=== PATIENT | female | born 1960 | race Caucasian/White ===

== ENCOUNTER → 2017-08-09 08:37 | Outpatient (CLI) | payer MEDICAID, SELFPAY ==
[2017-08-09 10:00] LABS: ALB/GLOB Ratio 1.2 RATIO (0.9-2.4); AST(SGOT) 21 U/L (15-37); Alanine Aminotransfer ALT/SGPT 24 U/L (13-56); Albumin, Serum 3.8 g/dL (3.2-5.0); Alkaline Phosphatase 93 U/L (45-117); Anion Gap 6 (5-15); BUN 14 mg/dL (7-18); BUN/Creat Ratio 19.9 RATIO (10-20); Calcium,Total 8.8 mg/dL (8.5-10.1); Chloride 105 mmol/L (98-107); Cholesterol 228 mg/dL (200); EST Glomerular Filtration Rate 92 mL/min (>60); Est Glom Filt Rate - Afr Amer 111 mL/min (>60); Globulin 3.2 g/dL (2.2-4.2); Glucose 99 mg/dL (74-106); High Density Lipoprotein 55 mg/dL; Potassium 3.9 mmol/L (3.5-5.1); Sodium Level 142 mmol/L (136-145); Triglycerides 113 mg/dL; Very Low Density Lipoprotein 23 mg/dL (5-40)
== END ==
PROVIDERS: Family Provider Preventive Medicine Occupational Medicine; PCP Preventive Medicine Occupational Medicine; Visit Provider Preventive Medicine Occupational Medicine
DX: Z00.00 Encounter for general adult medical examination without abnormal findings (principal)
CPT/HCPCS: 36415; 80053; 80061

== ENCOUNTER 2021-03-10 17:29 | Emergency (ER) | payer MEDICAID, SELFPAY ==
[2021-03-10 17:30] VITALS: BP 105/78; PULSE 102; RESP 22; TEMP 37.6; O2SAT 97; BMI 27.4
--- NOTE | 2021-03-10 18:03 | RAD_ITS ---
STUDY: X-RAY CHEST REASON FOR EXAM: Female, 60 years old. cough TECHNIQUE: Single AP portable view of the chest. COMPARISON: None. FINDINGS: The lungs are clear and expanded. There is no demonstrated pleural abnormality. Normal size heart. Normal mediastinum and enmanuel. Normal visualized pulmonary arteries. There is atherosclerotic calcification of the aortic arch with tortuosity. There are diffuse degenerative changes of the visualized thoracic spine. Normal visualized ribs, clavicles, and shoulders. There is no demonstrated abnormality of the visualized soft tissue structures of the upper abdomen. RAD/Chest 1 View (Portable) IMPRESSION: Degenerative changes, as described above. No demonstrated acute cardiopulmonary process. Electronically Signed: Yan Torres MD at 19:08 EDT , Service support ,
[2021-03-10 18:34] VITALS: BP 105/78; PULSE 102; RESP 22; TEMP 37.6; O2SAT 97
[2021-03-10 18:51] VITALS: O2SAT 95
--- NOTE | 2021-03-10 18:54 | EDS_ITS ---
HPI HPI - URI History of Present Illness Chief Complaint: Shortness of Breath Narrative Narrative: 60-year-old female presenting with chills, fever, cough for 6 days. She has not loss or change in taste or smell. Patient was not vaccinated for COVID-19 because she states it is her choice. She thinks she developed a fever today and states her temp was as high as 99.6. Patient does not have any chest pain. Patient does describe some nausea and diarrhea as well. ROS ROS ED Constitutional Constitutional ED: Reports chills and fever(s) Eyes Eyes: Denies blurry vision or diplopia ENT ENT ED: Reports rhinorrhea; Denies sore throat Cardiovascular Cardiovascular: Denies chest pain or palpitations Respiratory/Chest Respiratory/Chest: Reports cough and dyspnea Gastrointestinal Gastrointestinal: Reports nausea and vomiting; Denies abdominal pain Genitourinary Genitourinary ED: Denies dysuria or hematuria Musculoskeletal Musculoskeletal: Reports myalgias; Denies arthralgias Integumentary Denies Abrasions or rash Neurologic Neurologic: Denies headache(s) or weakness PFSH PFSH Medical History no medical history Home Medications ondansetron 4 mg PO Q8H PRN PRN #10 tab 11/03/13 [Rx Last Taken Unknown] ondansetron 4 mg PO Q8H PRN PRN #10 tab 03/10/21 [Rx Last Taken Unknown] Allergy/AdvReac Type Severity Reaction Status Date / Time No Known Allergies Allergy Verified 03/10/21 17:29 Surgical History no surgical history Social History Smoking Status: Never smoker EXAM Physical Exam Const Vital Signs: 03/10/21 17:30 03/10/21 18:34 03/10/21 18:51 Temperature 99.6 F H 99.6 F H Temperature Source Temporal Temporal Pulse Rate 102 H 102 H Respiratory Rate 22 H 22 H Respiratory Effort Short of Breath Respiratory Depth Normal Respiratory Pattern Tachypnea Blood Pressure 105/78 105/78 Blood Pressure Mean 87 87 Pulse Ox 97 97 Oxygen Delivery Method Room Air Room Air Room Air 03/10/21 20:40 Temperature Temperature Source Pulse Rate Respiratory Rate Respiratory Effort Respiratory Depth Respiratory Pattern Blood Pressure Blood Pressure Mean Pulse Ox 94 Oxygen Delivery Method Positive well nourished General Appearance ED: NAD; Negative for pallor HEENT normocephalic and atraumatic Eyes PERRL and EOMs intact bilaterally Neck supple and no meningeal signs Resp normal respiratory effort and clear to auscultation bilaterally Cardio Rate: tachycardic Rhythm: regular rhythm GI non-tender Palpation: soft Neuro oriented x3 and CN's II-XII intact bilaterally Sensorium / Orientation: alert Psych mental status grossly normal Skin General Skin Exam: Negative for jaundice or pallor Rashes: no rashes MDM MDM MDM Narrative Medical decision making narrative: Patient's CBC and BMP are normal. LFTs are normal. Procalcitonin negative. Chest x-ray my interpretation shows no acute cardiopulmonary process. The radiologist does agree.. Patient is not having any chest pain. She is not requiring oxygen. I feel she is stable to be discharged home since her Covid testing is negative. Impression: 1. Viral syndrome Lab Data Attestation: I reviewed the patient's lab results. Labs: Laboratory Results - last 24 hr 03/10/21 03/10/21 03/10/21 18:35 18:35 18:35 WBC 6.0 RBC 5.11 Hgb 14.9 Hct 44.6 MCV 87.3 MCH 29.2 MCHC 33.4 RDW Std Deviation 42.5 RDW Coeff of Miki 13.2 Plt Count 174 MPV 10.7 Immature Gran % (Auto) 0.300 Neut % (Auto) 81.5 H Lymph % (Auto) 12.4 L [place] % (Auto) 5.6 Eos % (Auto) 0.0 Baso % (Auto) 0.2 Absolute Neuts (auto) 4.9 Absolute Lymphs (auto) 0.75 L Nucleated RBC % 0 Sodium 137 Potassium 3.5 Chloride 102 Carbon Dioxide 27.0 Anion Gap 8 BUN 11 Creatinine 0.72 Estim Creat Clear Calc 81.81 Est GFR (MDRD) Af Amer 106 Est GFR (MDRD) Non-Af 87 BUN/Creatinine Ratio 15.2 Glucose 127 H Calcium 9.6 Total Bilirubin 0.60 AST 33 ALT 38 Alkaline Phosphatase 104 Total Protein 7.5 Albumin 3.7 Globulin 3.8 Albumin/Globulin Ratio 1.0 Procalcitonin 0.04 Radiography Diagnostic Testing: Radiology Impression Chest X-Ray 03/10/21 18:03 IMPRESSION: Degenerative changes, as described above. No demonstrated acute cardiopulmonary process. Electronically Signed: Yan Torres MD at 19:08 EDT , Service support , Discharge Plan Triage Chief Complaint: Shortness of Breath ED Provider: Saeid Bautista Dx/Rx/DC Orders Instructions: ED Viral Syndrome (Adult) Prescriptions: New ondansetron 4 mg tablet,disintegrating 4 mg PO Q8H PRN PRN (Reason: Nausea) Qty: 10 RF: 0 No Action ondansetron 4 MG tablet 4 mg PO Q8H PRN PRN (Reason: Nausea) Qty: 10 RF: 0 Primary Care Provider: Memo Burnett Referrals: Memo Burnett DO [Primary Care Provider] - Disposition Disposition: Home, Self Care Discharge Date/Time: 03/10/21 20:47
[2021-03-10 18:56] LABS: Absolute Lymphocyte Count 0.75 X10^3/uL (0.83-4.51); Absolute Neutrophil Count 4.9 X10^3/uL (2.0-7.7); Basophil# 0.01 X10^3/uL; Basophil% 0.2 % (0-1); Hematocrit 44.6 % (37-47); Hemoglobin 14.9 g/dL (12.0-15.0); Lymphocyte # 0.75 X10^3/ul (0.83-4.51); Lymphocyte % 12.4 % (19-41); Mean Corp Hgb Conc 33.4 g/dL (32-36); Mean Corpuscular Hgb 29.2 pg (27.0-32.0); Mean Corpuscular Volume 87.3 fL (81-99); Mean Platelet Vol. 10.7 fl (6.2-12.0); Monocyte# 0.34 X10^3/uL; Monocyte% 5.6 % (0-10); NRBC Flagged by Analyzer 0 % (0-5); Neutrophil # 4.91 X10^3/uL (2.7-7.7); Neutrophil % 81.5 % (47-70); Platelet Count 174 K/mm3 (150-450); RBC Distribution Width CV 13.2 % (11.6-14.6); RBC Distribution Width SD 42.5 fl (35.1-43.9); Red Blood Count 5.11 M/mm3 (4.2-5.4)
[2021-03-10 19:15] LABS: AST(SGOT) 33 U/L (15-37); Alanine Aminotransfer ALT/SGPT 38 U/L (13-56); Albumin, Serum 3.7 g/dL (3.2-5.0); Alkaline Phosphatase 104 U/L (45-117); Anion Gap 8 (5-15); BUN 11 mg/dL (7-18); BUN/Creat Ratio 15.2 RATIO (10-20); Calcium,Total 9.6 mg/dL (8.5-10.1); Chloride 102 mmol/L (98-107); Creatinine, Serum 0.72 mg/dL (0.55-1.02); EST Glomerular Filtration Rate 87 mL/min (>60); Est Glom Filt Rate - Afr Amer 106 mL/min (>60); Estimated Creatinine Clearance 81.81 ml/min; Globulin 3.8 g/dL (2.2-4.2); Glucose 127 mg/dL (74-106); Potassium 3.5 mmol/L (3.5-5.1); Protein, Total 7.5 g/dL (6.4-8.2); Sodium Level 137 mmol/L (136-145)
[2021-03-10 19:31] LABS: Procalcitonin 0.04 ng/mL (0.00-0.09)
[2021-03-10] MEDS: Ondansetron 4 MG/2 ML Vial IV (19:37)
[2021-03-10] MEDS: Acetaminophen 500 MG Tablet 1000 MG PO (19:37)
[2021-03-10 20:40] VITALS: O2SAT 94
== END 2021-03-10 20:47 | disposition home or self-care (01) ==
PROVIDERS: Emergency Provider Student in an Organized Health Care Education/Training Program; PCP Preventive Medicine Occupational Medicine
DX: B34.9 Viral infection, unspecified (principal); R50.9 Fever, unspecified; R05 Cough; R11.0 Nausea; R19.7 Diarrhea, unspecified
CPT/HCPCS: 71045; 80053; 84145; 85025; 87426; 96374; 99283; A4216; J2405

== ENCOUNTER → 2024-11-28 | Outpatient (CLI) | payer MEDICAID, SELFPAY ==
--- NOTE | 2024-11-28 08:07 | RAD_ITS ---
PROCEDURE: ESOPHAGUS DUAL CONTRAST 11/28/2024 REASON FOR EXAM: DYAPHAGIA/GERD W/O ESOPHAGITIS TECHNIQUE: The patient ingested barium. Multiple images were obtained. 34 seconds of fluoroscopy. 2.95 mGy. COMPARISON: None FINDINGS: There is a small sliding hiatal hernia without gastroesophageal reflux. Web- like stenosis is seen at the gastroesophageal junction. The patient ingested a 12 mm tablet the barium. The tablet is trapped at the gastroesophageal junction. RAD/Esophagus Dual Contrast IMPRESSION: Small sliding hiatal hernia without gastroesophageal reflux. Web-like stenosis at the gastroesophageal junction. There is trapping of the 12 mm tablet the barium at that site. Reading Location: [facility]
== END | disposition home or self-care (01) ==
LOC: RAD 08:03
PROVIDERS: Referring Provider Family Medicine; Visit Provider Family Medicine
DX: R13.10 Dysphagia, unspecified (principal); K21.9 Gastro-esophageal reflux disease without esophagitis
CPT/HCPCS: 74221

== ENCOUNTER 2024-12-03 05:12 | Day surgery (SDC) | payer MEDICAID, SELFPAY ==
[2024-12-03] VITALS (8 sets, daily range): BP systolic 105–134; BP diastolic 71–109; PULSE 64–76; RESP 14–18; TEMP 36.1–36.9; O2SAT 92–96
--- OUTSIDE RECORDS SUMMARY | 2024-12-03 05:15 | XMS RPT_ITS | CCD ---
Author Organization [facility] Care Team Providers Care Spout Liner Helper Name Role Phone CAN BURNETT Attending Unavailable CAN BURNETT Primary Care Unavailable CAN BURNETT DO Primary Care Physician Can Burnett DO Primary Care Provider [phone] CAN BURNETT Primary Care Unavailable ROWAN CEDENO Attending Unavailable CAN BURNETT Primary Care Unavailable CAN BURNETT Primary Care Unavailable RADHA BLANCO DO Attending Unavailable RADHA BLANCO DO Primary Care Unavailable RADHA BLANCO DO Primary Care Unavailable RADHA BLANCO DO Attending Unavailable Dr. Can Burnett DO Primary Care Provider Dr. Can Burnett DO Referring Provider Jennifer Linton Attending Provider [phone] Dr. Radha Blanco DO Attending Provider Dr. Radha Blanco DO Referring Provider Jennifer Linton Primary Care Provider Jennifer Chawla Attending Unavailable Can Burnett Primary Care Unavailable Can Burnett Referring Unavailable Jennifer Chawla Primary Care Unavailable Radha Blanco Attending Unavailable Radha Blanco Referring Unavailable Can Burnett Primary Care Unavailable Can Burnett Referring Unavailable Francesco Morris Attending Unavailable Medications Current Medications Medication Drug Class(es) Dates Sig (Normalized) Sig (Original) ascorbic acid 500 mg oral tablet (1 source) Vitamin C Start: 11-30-2024 take 1 tablet by mouth once daily Ascorbic Acid (Vitamin C) (C-500) 500 mg tablet Active 500 mg PO DAILY November 30, 2024 12:00am calcium carbonate 1500 mg / cholecalciferol 200 unt oral tablet (1 source) Vitamin D Start: 11-30-2024 Calcium Carbonate-Vitamin D3 (Calcium 600 + D(3)) 600 mg-5 mcg (200 unit) tablet Active 1 {tbl} PO DAILY November 30, 2024 12:00am cholecalciferol 0.025 mg oral capsule (1 source) Vitamin D Start: 11-30-2024 take 1 capsule by mouth once daily Cholecalciferol (Vitamin D3) (Vitamin D3) 25 mcg (1,000 unit) capsule Active 25 ug PO DAILY November 30, 2024 12:00am famotidine 40 mg oral tablet (3 sources) Histamine-2 Receptor Antagonist Start: 09-24-2024 take 1 tablet by mouth at bedtime Famotidine 40 mg tablet Active 40 mg PO AT BEDTIME September 24, 2024 12:00am Start: 09-24-2024 End: 09-24-2024 take 1 tablet by mouth at bedtime Famotidine (Pepcid Ac) 10 mg tablet Discontinued 10 mg PO AT BEDTIME September 24, 2024 12:00am September 24, 2024 3:26pm Start: 06-18-2022 famotidine 40 mg oral tablet Dose : 40 mg = 1 tab(s), Oral, Daily, # 90 tab(s), 3 Refill(s), Pharmacy: [facility]/pharmacy #[id number], GERD without esophagitis, 168.5, cm, 08/25/20 8:27:00 EST, Height, kg, 08/25/20 8:27:00 EST, Dosing Weight Start Date: 06/18/22 Status: Ordered Magnesium (1 source) Start: 11-30-2024 take 1 tablet by mouth once daily Magnesium 250 mg tablet Active 250 mg PO DAILY November 30, 2024 12:00am Multivitamin (Daily Multi-Vitamin) tablet (1 source) Start: 11-30-2024 Multivitamin (Daily Multi-Vitamin) tablet Active 1 {tbl} PO DAILY November 30, 2024 12:00am Multivitamin preparation (1 source) Start: 05-19-2020 take 1 tablet by mouth once daily Multivitamin Dose = 1 tab(s), Oral, Daily, 0 Refill(s) Start Date: 05/19/20 Status: Ordered Homestead 8-Aus-Kcy-Fish Oil (Fish Oil) 1,200 (144-216) mg capsule (1 source) Start: 11-30-2024 Homestead 2-Kvt-Gkt-Fish Oil (Fish Oil) 1,200 (144-216) mg capsule Active 1 NMA PO DAILY November 30, 2024 12:00am pantoprazole 40 mg delayed release oral tablet (1 source) Proton Pump Inhibitor Start: 09-24-2024 take 1 tablet by mouth twice daily 30 minutes before breakfast Pantoprazole 40 mg tablet,delayed release (DR/EC) Active 40 mg PO TWICE A DAY September 24, 2024 12:00am Please take 30 minutes before breakfast and dinner. vitamin b12 0.05 mg oral tablet (1 source) Vitamin B12 Start: 11-30-2024 take 1 tablet by mouth once daily Cyanocobalamin (Vitamin B-12) (Vitamin B-12) 50 mcg tablet Active 50 ug PO DAILY November 30, 2024 12:00am Vitamin C 500 mg oral tablet (1 source) Start: 07-05-2022 Vitamin C 500 mg oral tablet Dose : 500 mg = 1 tab(s), Oral, qDay, # 30 tab(s), 0 Refill(s) Start Date: 07/05/22 Status: Ordered Completed/Discontinued Medications Medication Drug Class(es) Dates Sig (Normalized) Sig (Original) estradiol 0.1 mg/ml vaginal cream (3 sources) Estrogen Start: 07-21-2020 estradiol (ESTRACE) 0.01 % (0.1 mg/gram) vaginal cream Use 0.5 g vaginally once daily. Use daily for 2 weeks then 1-3 times a week as needed 42.5 g 1 07/21/2020 Active Comment on above: Use 0.5 g vaginally once daily. Use daily for 2 weeks then 1-3 times a week as needed ondansetron 4 mg disintegrating oral tablet (2 sources) Serotonin-3 Receptor Antagonist Start: 11-03-2013 End: 09-24-2024 take 1 tablet by mouth every eight hours as needed for nausea Ondansetron 4 mg tablet,disintegrat ing Discontinued 4 mg PO EVERY 8 HOURS NEEDED as needed for Nausea March 10, 2021 12:00am September 24, 2024 3:00pm Problems Active Problems Problem Classification Problem Date Documented Da te Episodic/Chronic Diseases of white blood cells (2 sources) Leukopenia; Translations: [Decreased white blood cell count, unspecified] Chronic Esophageal disorders (3 sources) Gastroesophageal reflux disease without esophagitis; Translations: [Gastroesophageal reflux disease] Onset: 5 05-19-2020 Chronic Immunizations and screening for infectious disease (1 source) Encounter for screening for other viral diseases; Translations: [Encounter for screening for other viral diseases] Onset: 5 Episodic Nutritional deficiencies (1 source) Vitamin D deficiency, unspecified; Translations: [Vitamin D deficiency, unspecified] Onset: 5 Chronic Other bone disease and musculoskeletal deformities (1 source) Disorder of bone 07-05-2022 Episodic Other connective tissue disease (1 source) Ganglion cyst of right foot 05-19-2020 Episodic Other gastrointestinal disorders (2 sources) Dysphagia; Translations: [Dysphagia, unspecified] 09-24-2024 Episodic Other gastrointestinal disorders (1 source) Dysphagia, unspecified; Translations: [Dysphagia, unspecified] Onset: Episodic Other screening for suspected conditions (not mental disorders or infectious disease) (4 sources) Encounter for screening for cardiovascular disorders; Translations: [Encounter for screening for diseases of the blood and blood-forming organs and certain disorders involving the immune mechanism] Onset: 5 Episodic Other upper respiratory disease (1 source) Allergic rhinitis 07-05-2022 Chronic Residual codes; unclassified (1 source) Disturbance in sleep behavior 05-19-2020 Episodic Spondylosis; intervertebral disc disorders; other back problems (3 sources) Cervical spondylosis; Translations: [Spondylosis without myelopathy or radiculopathy, cervical region] Onset: 4 09-10-2013 Chronic Unclassified (2 sources) Patient encounter status 07-05-2022 Past or Other Problems Problem Classification Problem Date Documented Da te Episodic/Chronic Spondylosis; intervertebral disc disorders; other back problems (3 sources) Chronic neck pain; Translations: [Cervicalgia] Onset: 09-10-2013 09-10-2013 Episodic Results Test Name Value Interpretation Reference Range Facility Esophagus Dual Contraston Esophagus Dual Contrast [facility] [address] [place] [address] [id number] Esophagus Dual Contrast MR#: [id number] Acct: [id number] Name: YAS SMITH Rep #: [id number] : 1960 F 64 From: Leeroy chung MD PCP: GIANNI Dumont Status: REG CLI Study: Esophagus Dual Contrast Date of Exam: 11/28/24 Exam# [id number] Ordering Dr: Radha Blanco DO PROCEDURE: ESOPHAGUS DUAL CONTRAST 11/28/2024 REASON FOR EXAM: DYAPHAGIA/GERD W/O ESOPHAGITIS TECHNIQUE: The patient ingested barium. Multiple images were obtained. 34 seconds of fluoroscopy. 2.95 mGy. COMPARISON: None FINDINGS: There is a small sliding hiatal hernia without gastroesophageal reflux. Web-like stenosis is seen at the gastroesophageal junction. The patient ingested a 12 mm tablet the barium. The tablet is trapped at the gastroesophageal junction. RAD/Esophagus Dual Contrast IMPRESSION: Small sliding hiatal hernia without gastroesophageal reflux. Web-like stenosis at the gastroesophageal junction. There is trapping of the 12 mm tablet the barium at that site. Reading Location: [place] [address] CC: GIANNI Chawla; Dr. Radha Blanco DO Earthmoving Labourer: Signed Normal [facility] Gastroenterology Visit Repor ton 09-24-2024 Gastroenterology Visit Report [facility] [address] [place] [address] OFFICE VISIT Date of Service: 09/24/24 MR#: [id number] Acct: [id number] Name: YAS SMITH Rep #: [id number] : 1960 Provider: GIANNI driscoll Age/Sex: 64/F [place] [facility] Status: Signed Intake Vital Signs 03/10/21 17:30 Height 5 ft 7 in Intake Visit Reasons: Gastroesophageal reflux disease (GERD) Allergies No Known Allergies Allergy (Verified 09/24/24 14:59) PFSH Social History Smoking Status: Never smoker HPI HPI Details: YAS SMITH, is a 64 F who presents to the office today for establishment with [facility] for complaints of difficulty swallowing. 3 Labs: HCV nonreactive, chol 273, trig 81, HDL 71, LDL 186, CBC/CMP WNL. She reports that while eating, she will randomly get the feeling that her air is cut off but she can breathe just fine. She does not consume large bites of food and the food type is not consistently the same with each episode. When the blockages occur, she will note increased salivation and nasal drainage, she will then burp and it feels as if the food bolus will then travel down. She reports frequent sour taste in her mouth, she does snore very loudly, and notes increased belching. She difficulty chewing and moving food bolus to back of mouth. She does have frequent throat clearing when not eating. She denies nausea, vomiting, abdominal bloating, pain, constipation, diarrhea, hematochezia, and melena. She reports daily BMs without straining and with complete evacuation. She states that she is already scheduled for a barium tablet swallow test at [facility] on 10.11.24. She has been taking OTC Pepcid every night but has not noticed any decrease in occurrences of difficulty swallowing. ROS Const Constitutional: No chills, fatigue, fever(s) or weight change Eyes Eyes: No blurry vision or change in vision ENT ENT: Positive for difficulty swallowing; No abnormal hearing Resp Respiratory: Positive for cough Cardio Cardiology: No chest pain at rest, chest pain with exertion or leg pain with exertion Gastro GI: Positive for difficulty swallowing; No abdominal pain, belching, bloating, change in bowel habits, change in stool character, coffee ground emesis, constipation, cramping, diarrhea, heartburn, feeling full early, excessive flatus, incontinent of stools, Vomiting blood/hematemesis, Blood in stool, loose stools, Black,tarry stools, nausea/dyspepsia, pain with swallowing, vomiting or other Genitourinary-Female: No difficulty urinating Musc Musculoskeletal: No abnormal gait, joint pain or leg pain with exertion Skin Skin: No yellowing of the eye or itchy eyes Neuro Neurology: No abnormal gait or abnormal hearing Psych Psychiatric: No anxiety and No depression Endo Endocrine: No cold intolerance, fatigue, heat intolerance or weight change Aller/Imm Allergy/Immunologic: No food intolerance or itchy eyes Nirmal/Lymp Hematologic/Lymphatic: No easy bleeding or easy bruising Exam Const General: cooperative, healthy appearing, comfortable and no acute distress Nutritional Appearance: obese Orientation: alert and oriented x3 HENMT Head: normal to inspection Ears: hearing grossly normal bilaterally Nose: external nose normal Face and sinus: normal facial exam and face symmetric Eyes General: appearance normal, both eyes and all related structures Sclera: sclerae normal Neck Neck: full ROM Chest Chest palpation inspection: normal inspection of the chest Resp Effort Inspection: normal respiratory effort, able to speak in complete sentences and symmetric chest movement GI Inspection: normal to inspection and obesity Auscultation: normal bowel sounds Percussion: normal to percussion Palpation: soft and no hepatosplenomegaly Skin General: no rashes or lesions noted Neuro General: patient alert, patient oriented x3 and moves all extremities Cognition: normal cognition Speech: speech normal Gait: normal gait Extrem General: full ROM Psych Appearance: grossly normal Mental Status: mental status grossly normal Mood: congruent mood Affect: normal affect Speech and Movement: speech and movement normal Attitude: cooperative Thought Process: normal Judgment: judgment good Assessment and Plan Assessment and Plan (1) Gastroesophageal reflux disease: Qualifiers: Esophagitis presence: esophagitis presence not specified Qualified Code(s): K21.9 - Gastro- esophageal reflux disease without esophagitis (2) Dysphagia: Status: Acute Qualifiers: Dysphagia type: unspecified Qualified Code(s): R13.10 - Dysphagia, unspecified Medications: New pantoprazole Please take 30 minutes before breakfast and dinner. 40 mg PO BID 60 tabs 3RF (more content not included)... Normal [facility] .Auto Diffon 09-12-2024 Basophil, Absolute 0.0 10 3/mcL Normal 0.0-0.2 [facility] Comment on above: Performed By: #### C MP, LIPID, ANEU, ADIFF, VIDH, CBC, GFR, TSH #### [address] [address] #### HCV1 #### [facility] [address] [place] [address] Basophils/100 WBC (Bld) 0.8 % Normal 0.0-2.5 [facility] Comment on above: Performed By: #### C MP, LIPID, ANEU, ADIFF, VIDH, CBC, GFR, TSH #### [address] [address] #### HCV1 #### [address] [address] Eosinophil, Absolute 0.0 10 3/mcL Normal 0.0-0.7 [facility] Comment on above: Performed By: #### C MP, LIPID, ANEU, ADIFF, VIDH, CBC, GFR, TSH #### [place] [address] #### HCV1 #### [address] [address] Eosinophils/100 WBC (Bld) 0.7 % Normal 0.0-7.0 [facility] Comment on above: Performed By: #### C MP, LIPID, ANEU, ADIFF, VIDH, CBC, GFR, TSH #### [place] [address] #### HCV1 #### [address] [address] Lymphocyte, Absolute 1.5 10 3/mcL Normal 0.9-4.3 [facility] Comment on above: Performed By: #### C MP, LIPID, ANEU, ADIFF, VIDH, CBC, GFR, TSH #### [place] [address] #### HCV1 #### [address] [address] Lymphocytes/100 WBC (Bld) 29.8 % Normal 20.0-40.0 [facility] Comment on above: Performed By: #### C MP, LIPID, ANEU, ADIFF, VIDH, CBC, GFR, TSH #### [place] [address] #### HCV1 #### [address] [address] Monocyte, Absolute 0.3 10 3/mcL Normal 0.1-1.4 [facility] Comment on above: Performed By: #### C MP, LIPID, ANEU, ADIFF, VIDH, CBC, GFR, TSH #### [address] [address] #### HCV1 #### [address] [address] Monocytes/100 WBC (Bld) 6.2 % Normal 2.0-13.0 [facility] Comment on above: Performed By: #### C MP, LIPID, ANEU, ADIFF, VIDH, CBC, GFR, TSH #### [address] [address] #### HCV1 #### [address] [address] Neutrophils/100 WBC (Bld) 62.5 % Normal 50.0-75.0 [facility] Comment on above: Performed By: #### C MP, LIPID, ANEU, ADIFF, VIDH, CBC, GFR, TSH #### [address] [address] #### HCV1 #### [address] [address] .GFRon 09-12-2024 Estimated Glomerular Filtration Rate 80 ml/min/1.73sqm Normal [facility] Comment on above: Result Comment: Stages of Chronic Kidney Disease (CKD) Stage Description eGFR(ml/min/1.73 sq.m.) CKD 1 Normal kidney function or >=90 normal kindney function with possible kidney damage (ex. Proteinuria) CKD 2 Kidney damage with mild loss 60-89 of kidney function CKD 3a Mild to moderate loss of kidney 45-59 function CKD 3b Moderate to severe loss of 30-44 of kindey function CKD 4 Severe loss of kidney function 15-29 CKD 5 Kidney failure <15 Note: (go live 2024) the eGFR calculation was updated to the 2020 CKD-EPI creatinine equation without a race factor to calculate the eGFR results. Performed By: #### C MP, LIPID, ANEU, ADIFF, VIDH, CBC, GFR, TSH #### [address] [address] #### HCV1 #### [address] [address] .NEUABSon 09-12-2024 Neutrophil, Absolute 3.1 10 3/mcL Normal 2.3-8.1 [facility] Comment on above: Performed By: #### C MP, LIPID, ANEU, ADIFF, VIDH, CBC, GFR, TSH #### [address] [address] #### HCV1 #### [address] [address] CBCon 09-12-2024 Erythrocyte distribution width (RBC) [Ratio] 14.4 % Normal 11.5-15.5 [facility] Comment on above: Performed By: #### C MP, LIPID, ANEU, ADIFF, VIDH, CBC, GFR, TSH #### [place] [id number] #### HCV1 #### [address] [address] Hematocrit (Bld) [Volume fraction] 44.3 % Normal 34.0-46.0 [facility] Comment on above: Performed By: #### C MP, LIPID, ANEU, ADIFF, VIDH, CBC, GFR, TSH #### [address] [address] #### HCV1 #### [address] [address] Hgb 14.9 G/dL Normal 12.0-16.0 [facility] Comment on above: Performed By: #### C MP, LIPID, ANEU, ADIFF, VIDH, CBC, GFR, TSH #### [place] [address] #### HCV1 #### [address] [address] MCH (RBC) [Entitic mass] 29.0 pg Normal 27.0-33.0 [facility] Comment on above: Performed By: #### C MP, LIPID, ANEU, ADIFF, VIDH, CBC, GFR, TSH #### [address] [address] #### HCV1 #### [address] [address] MCHC 33.7 G/dL Normal 32.0-36.0 [facility] Comment on above: Performed By: #### C MP, LIPID, ANEU, ADIFF, VIDH, CBC, GFR, TSH #### [address] [address] #### HCV1 #### [place] [address] MCV (RBC) [Entitic vol] 86.0 fL Normal 80.0-99.0 [facility] Comment on above: Performed By: #### C MP, LIPID, ANEU, ADIFF, VIDH, CBC, GFR, TSH #### [place] [address] #### HCV1 #### [place] [address] Platelet 233 10 3/mcL Normal 150-450 [facility] Comment on above: Performed By: #### C MP, LIPID, ANEU, ADIFF, VIDH, CBC, GFR, TSH #### [place] [address] #### HCV1 #### [place] [address] Platelet mean volume (Bld) [Entitic vol] 8.8 fL Normal 6.6-10.5 [facility] Comment on above: Performed By: #### C MP, LIPID, ANEU, ADIFF, VIDH, CBC, GFR, TSH #### [place] [address] #### HCV1 #### [place] [address] RBC 5.15 10 6/mcL Normal 4.10-5.30 [facility] Comment on above: Performed By: #### C MP, LIPID, ANEU, ADIFF, VIDH, CBC, GFR, TSH #### [place] [address] #### HCV1 #### [place] [address] WBC 5.0 10 3/mcL Normal 4.5-10.8 [facility] Comment on above: Performed By: #### C MP, LIPID, ANEU, ADIFF, VIDH, CBC, GFR, TSH #### [address] [address] #### HCV1 #### [address] [address] CMPon 09-12-2024 Albumin Level 4.2 G/dL Normal 3.4-4.8 [facility] Comment on above: Performed By: #### C MP, LIPID, ANEU, ADIFF, VIDH, CBC, GFR, TSH #### [address] [address] #### HCV1 #### [address] [address] Albumin/Globulin [Mass ratio] 1.2 {ratio} Normal 1.1-2.5 [facility] Comment on above: Performed By: #### C MP, LIPID, ANEU, ADIFF, VIDH, CBC, GFR, TSH #### [address] [address] #### HCV1 #### [address] [address] ALP [Catalytic activity/Vol] 112 U/L Normal 40-135 [facility] Comment on above: Performed By: #### C MP, LIPID, ANEU, ADIFF, VIDH, CBC, GFR, TSH #### [address] [address] #### HCV1 #### [address] [address] ALT [Catalytic activity/Vol] 29 U/L Normal 14-59 [facility] Comment on above: Performed By: #### C MP, LIPID, ANEU, ADIFF, VIDH, CBC, GFR, TSH #### [address] [address] #### HCV1 #### [address] [address] AST [Catalytic activity/Vol] 20 U/L Normal 10-40 [facility] Comment on above: Performed By: #### C MP, LIPID, ANEU, ADIFF, VIDH, CBC, GFR, TSH #### [address] [address] #### HCV1 #### [address] [address] Bili Total 0.6 mg/dL Normal 0.2-1.0 [facility] Comment on above: Result Comment: Use of this assay is not recommended for patients undergoing treatment with eltrombopag due to the potential for falsely elevated results. Performed By: #### C MP, LIPID, ANEU, ADIFF, VIDH, CBC, GFR, TSH #### [place] [address] #### HCV1 #### [place] [address] BUN/Creatinine Ratio 17 ratio Normal 7-27 [facility] Comment on above: Performed By: #### C MP, LIPID, ANEU, ADIFF, VIDH, CBC, GFR, TSH #### [place] [address] #### HCV1 #### [place] [address] Calcium [Mass/Vol] 9.5 mg/dL Normal 8.4-10.2 [facility] Comment on above: Performed By: #### C MP, LIPID, ANEU, ADIFF, VIDH, CBC, GFR, TSH #### [place] [address] #### HCV1 #### [address] [address] Chloride [Moles/Vol] 98 mmol/L Normal 98-107 [facility] Comment on above: Performed By: #### C MP, LIPID, ANEU, ADIFF, VIDH, CBC, GFR, TSH #### [place] [address] #### HCV1 #### [place] [id number] CO2 [Moles/Vol] 32 mmol/L High 23-31 [facility] Comment on above: Performed By: #### C MP, LIPID, ANEU, ADIFF, VIDH, CBC, GFR, TSH #### [address] [address] #### HCV1 #### [address] [address] Creatinine [Mass/Vol] 0.82 mg/dL Normal 0.55-1.02 [facility] Comment on above: Result Comment: Test ing performed on Siemens Dimension EXL analyzer using a modified kinetic Faith technique. Performed By: #### C MP, LIPID, ANEU, ADIFF, VIDH, CBC, GFR, TSH #### [address] [address] #### HCV1 #### [address] [address] Electrolyte Balance 7.0 mEq/L Normal 4.0-15.0 [facility] Comment on above: Performed By: #### C MP, LIPID, ANEU, ADIFF, VIDH, CBC, GFR, TSH #### [address] [address] #### HCV1 #### [address] [address] Globulin 3.5 G/dL Normal 1.5-3.8 [facility] Comment on above: Performed By: #### C MP, LIPID, ANEU, ADIFF, VIDH, CBC, GFR, TSH #### [address] [address] #### HCV1 #### [address] [address] Glucose [Mass/Vol] 100 mg/dL Normal 80-115 [facility] Comment on above: Performed By: #### C MP, LIPID, ANEU, ADIFF, VIDH, CBC, GFR, TSH #### [address] [address] #### HCV1 #### [address] [address] Potassium [Moles/Vol] 3.7 mmol/L Normal 3.5-5.1 [facility] Comment on above: Performed By: #### C MP, LIPID, ANEU, ADIFF, VIDH, CBC, GFR, TSH #### [address] [address] #### HCV1 #### [address] [address] Sodium [Moles/Vol] 137 mmol/L Normal 136-145 [facility] Comment on above: Performed By: #### C MP, LIPID, ANEU, ADIFF, VIDH, CBC, GFR, TSH #### [place] [address] #### HCV1 #### [place] [address] Total Protein 7.7 G/dL Normal 6.4-8.2 [facility] Comment on above: Performed By: #### C MP, LIPID, ANEU, ADIFF, VIDH, CBC, GFR, TSH #### [place] [address] #### HCV1 #### [place] [address] Urea nitrogen [Mass/Vol] 14 mg/dL Normal 7-18 [facility] Comment on above: Performed By: #### C MP, LIPID, ANEU, ADIFF, VIDH, CBC, GFR, TSH #### [address] [address] #### HCV1 #### [address] [address] HCVon 09-12-2024 Hep C Ab Non-Reactive Normal Non-Reactive [facility] Comment on above: Performed By: #### C MP, LIPID, ANEU, ADIFF, VIDH, CBC, GFR, TSH #### [address] [address] #### HCV1 #### [address] [address] Hep C Ab Int Normal [facility] Comment on above: Result Comment: Nonr eactive: Samples with a value < 0.80 are considered nonreactive (negative) for antibodies to HCV. A negative test result does not exclude the possibility of exposure to or infection with HCV. HCV antibodies may be undetectable in some stages of the infection and in some clinical conditions. See Interp Performed By: #### C MP, LIPID, ANEU, ADIFF, VIDH, CBC, GFR, TSH #### [address] [address] #### HCV1 #### [address] [address] LIPIDon 09-12-2024 Cholesterol [Mass/Vol] 273 mg/dL High 0-200 [facility] Comment on above: Result Comment: Chol esterol Reference Interval: Less than 200 Desirable 200-239 Borderline high risk 240 and above High risk Performed By: #### C MP, LIPID, ANEU, ADIFF, VIDH, CBC, GFR, TSH #### [address] [address] #### HCV1 #### [address] [address] Cholesterol in HDL [Mass/Vol] 71 mg/dL High 40-60 [facility] Comment on above: Performed By: #### C MP, LIPID, ANEU, ADIFF, VIDH, CBC, GFR, TSH #### [address] [address] #### HCV1 #### [address] [address] Cholesterol in LDL [Mass/Vol] 186 mg/dL High 0-130 [facility] Comment on above: Performed By: #### C MP, LIPID, ANEU, ADIFF, VIDH, CBC, GFR, TSH #### [address] [address] #### HCV1 #### [address] [address] Triglyceride [Mass/Vol] 81 mg/dL Normal 0-150 [facility] Comment on above: Result Comment: Trig lyceride Reference Interval: Less than 150 Normal 150-199 Borderline high risk 200-499 High risk 500 or higher Very high risk Performed By: #### C MP, LIPID, ANEU, ADIFF, VIDH, CBC, GFR, TSH #### [address] [address] #### HCV1 #### [place] [address] TSHon 09-12-2024 TSH Qn 2.26 m[IU]/L Normal 0.36-3.74 [facility] Comment on above: Performed By: #### C MP, LIPID, ANEU, ADIFF, VIDH, CBC, GFR, TSH #### [place] [address] #### HCV1 #### [place] [address] VIDHon 09-12-2024 Vit. D 25-Hydroxy 51.5 ng/mL Normal [facility] Comment on above: Result Comment: Inte rpretive Values Based on Total 25(OH) Vitamin D: Deficient <20 ng/mL Insufficient 20 - <30 ng/mL Sufficient 30-100 ng/mL Performed By: #### C MP, LIPID, ANEU, ADIFF, VIDH, CBC, GFR, TSH #### [address] [address] #### HCV1 #### [place] [address] CNOVon 03-01-2023 CNOV Office Visit (OBGYWM ) YAS SMITH ([id number]) 1960 F Date Time Provider Department 03/01/23 2:00 PM ROWAN CEDENO OBGYWM During your visit today, we recorded the following information about you: Blood pressure Weight Height 118/66 86.4 kg 1.702 m Rowan Cedeno APRN.CNP 03/01/2023 2:46 PM Signed Yas is a 62 year old who presents for an annual gynecologic exam without complaints. Postmenopausal: Yes since 2011 HRT use: No. Last Pap: 09/16/2017 normal HPV: 09/08/2017 negative History of abnormal pap: No Last mammogram: 2022 normal History of abnormal mammogram: Yes benign Sexually active: not really OB History T0 L1 SAB0 IAB0 Ectopic0 Multiple0 Live Births0 Logistics Coordinator History LMP: 07/17/2012, Postmenopausal Age at Menarche: Age at First : Age at Menopause: Logistics Coordinator History Comments: Sexual Activity: Yes; Male; partner vasectomy Contraception: No contraception data on record PAST MEDICAL HISTORY Diagnosis Date Facet arthritis of cervical region Hyperlipemia PAST SURGICAL HISTORY Procedure Laterality Date BREAST BIOPSY 02/2012 left breast cyst asp/benign FAMILY HISTORY Problem Relation Age of Onset None Mother Breast Cancer Maternal Grandmother also 2 maternal aunts SOCIAL HISTORY Social History Tobacco Use Smoking status: Never Smokeless tobacco: Never Vaping Use Vaping Use: Never used Substance Use Topics Alcohol use: Yes Comment: occasionally once monthly Drug use: No REVIEW OF SYSTEMS Abdomen: No abdominal pain, nausea, vomiting, diarrhea, or constipation. No bloating, early satiety, indigestion, or increased flatulence. Bladder: No dysuria, gross hematuria, urinary frequency, urinary urgency, or incontinence Breast: No breast lumps, nipple d/c, overlying skin changes, redness or skin retraction Allergies and current medication updated:Yes EXAM: BP 118/66 Ht 5' 7 (1.70m) Wt 190 lb 6.4 oz (86.4kg) LMP 07/17/2012 BMI 29.81 kg/(m2). GENERAL: pleasant, female in no apparent distress HEENT: Normocephalic, atraumatic, mucus membranes moist, and no lesions NECK: Supple, full range of motion, no adenopathy, and thyroid normal DERMATOLOGY: Normal, without lesions, non-icteric, and non-hirsute BREAST: soft, non-tender, symmetric, no dominant mass, normal nipple-areolar complex, no lymphadenopathy, and no nipple discharge CHEST: Normal inspiratory effort ABDOMEN: soft, non-tender, and no masses PELVIC: external genitalia normal, normal Bartholin's glands, urethra, [place]'s glands, no vulvar lesions, no cervical lesions, physiologic discharge present, normal appearing perineal body and perianal region BIMANUAL: uterus normal size, shape and consistency, no adnexal masses, and non-tender RECTOVAGINAL: deferred. NEURO: alert and oriented x3,exam grossly non-focal EXTREMITIES: normal ASSESSMENT/PLAN: 1) Health maintenance: Pap done with HPV. Mammogram up to date Nutrition, exercise and routine health maintenance exams reviewed. Calcium/Vitamin D supplementation information provided. Colon cancer screening: up to date with screening BMD: up to date 2) Follow up one year or sooner as needed Rowan Cedeno APRN.SCRAP STRIPPER HAND Allergies As of Date: 03/01/2023 (No Known Allergies) Date Reviewed: 03/01/2023 Reviewed by: Rowan Cedeno APRN.SCRAP STRIPPER HAND - Fully Assessed Reason for Visit: Yearly Exam [187] Primary Visit Diagnosis:Encounter for gynecological examination (general) (routine) without abnormal findings [Z01.419] Other Visit Diagnoses:Encounter for screening for human papillomavirus (HPV) [Z11.51] Pap smear for cervical cancer screening [Z12.4] Encounter for screening mammogram for breast cancer [Z12.31] Dense breast tissue [R92.2] Order(s):HIRAM SCREENING W EFREN [[id number]] Order #: [id number] FUTURE PAP TEST [[id number]] Order #: [id number]. #:[id number] HPV W/GENOTYPE THIN PREP [[id number]] Reflex Order#: [id number] (Ord#:[id number])Spec. #:[id number] Prescriptions as of 03/10/2023 - estradiol (ESTRACE) 0.01 % (0.1 mg/gram) vaginal cream Use 0.5 g vaginally once daily. Use daily for 2 weeks then 1-3 times a week as needed Meds Comments as of 07/27/2012: No daily medications Problem List As Of Date 03/01/2023 Noted Resolved Lump or mass in breast [N63.0] 12/28/2005 03/22/2012 Chronic neck pain [M54.2, G89.29] 09/10/2013 DJD (degenerative joint disease), cervical [M47*09/10/2013 Disorder of bone [M89.9] 03/01/2023 Gastroesophageal reflux disease without esophag*03/01/2023 Leukopenia [D72.819] 03/01/2023 Disposition: Return in 1 year (on 03/01/2024) for Annual Exam. Follow-up and Disposition History for Encounter Date Provider Department Center 03/01/2023 [id number] CEDENO Ludivina Suarez Encounter Status:Closed by ROWAN CEDENO on (more content not included)... Normal [facility] HPV W/GENOTYPE THIN PREPon 0 03-01-2023 HPV 16 Ag Ql (Unsp spec) Negative Normal Negative for HPV DNA high risk type 16 by PCR [facility] Comment on above: Order Comment: Speci men Type: FLUID SPECIMEN Ordering Facility: [facility] Address: [address] [place] [address] Performed By: #### H PVHRT #### [facility] [place] [id number] [address] [place] [address] [place] HPV 18 Ag Ql (Unsp spec) Negative Normal Negative for HPV DNA high risk type 18 by PCR [facility] Comment on above: Order Comment: Speci men Type: FLUID SPECIMEN Ordering Facility: [facility] Address: [address] [place] [address] Performed By: #### H PVHRT #### [facility] CLIA [id number] [address] [place] [address] [place] HPV 31+33+35+39+45+51+52+ 56+58+59+66+68 DNA BEVERLY+probe Ql (Cvx) Negative for HPV DNA high risk types: 31,33,35,39,45,51,52,5 6,58,59,66,68 by PCR. Normal Negative for HPV DNA high risk types: 31,33,35,39, 45,51,52,56, 58,59,66,68 by PCR. [facility] Comment on above: Order Comment: Speci men Type: FLUID SPECIMEN Ordering Facility: [facility] Address: [address] [place] [address] Performed By: #### H PVHRT #### [facility] CLIA [id number] [address] [place] [address] [place] PAP TESTon 03-01-2023 ADEQUACY Satisfactory for interpretation Normal [facility] Comment on above: Order Comment: Speci men Type: FLUID SPECIMEN Ordering Facility: [facility] Address: [address] [place], [place] [id number] Performed By: #### L [id number] #### [facility] CLIA [id number] [address] [place] CASE REPORT Normal [facility] Comment on above: Order Comment: Speci men Type: FLUID SPECIMEN Ordering Facility: [facility] Address: [address] [place] [address] Result Comment: Gyne cologic Cytology Report Case: [id number] Authorizing Provider: Rowan Cedeno APRN.SCRAP STRIPPER HAND Collected: 03/01/2023 02:36 PM Ordering Location: OB/Gynecology Received: 03/02/2023 12:36 PM First Screen: Gmitro, Atif, CT, ASCP Specimen: Pap Test, ThinPrep, Cervix Performed By: #### L [id number] #### [facility] CLIA [id number] [address] [place] [address] [place] CLINICAL HISTORY, CYTOLOGY, SAP BW BI DEVELOPER Post Menopausal Normal [facility] Comment on above: Order Comment: Speci men Type: FLUID SPECIMEN Ordering Facility: [facility] Address: [address] [place], [place] [id number] Result Comment: Rout ine Exam Performed By: #### L [id number] #### [facility] CLIA [id number] [address] [place] [id number] [place] FINAL PERFORMING LAB Normal [facility] Comment on above: Order Comment: Speci men Type: FLUID SPECIMEN Ordering Facility: [facility] Address: [address] [place] [address] Result Comment: Tech nical component, power switchboard operator screening performed at [facility], [address] [place] [address] CLIA# [id number] Diagnostic interpretation performed at [facility], [address] [facility] [address] CLIA# [id number] [employer] Estate [employer] Licensee: Maco Garcia M.D. Performed By: #### L [id number] #### [facility] CLIA [id number] [address] [place] [address] [place] HPV REFLEX Yes HPV Normal [facility] Comment on above: Order Comment: Speci men Type: FLUID SPECIMEN Ordering Facility: [facility] Address: [address] [place] [address] Performed By: #### L [id number] #### [facility] CLIA [id number] [address] [place] [address] [place] INTERPRETATION, CYTOLOGY, SAP BW BI DEVELOPER Normal [facility] Comment on above: Order Comment: Speci men Type: FLUID SPECIMEN Ordering Facility: [facility] Address: [address] [place] [address] Result Comment: Nega tive for intraepithelial lesion or malignancy. Performed By: #### L [id number] #### [facility] CLIA [id number] [address] [place] [address] [place] PAP DISCLAIMER COMMENT The Pap Smear is a screening test for cervical cancer. False negative results occur with all screening tests, emphasizing the need for rescreening at recommended intervals, and clinical correlation. Normal [facility] Comment on above: Order Comment: Speci men Type: FLUID SPECIMEN Ordering Facility: [facility] Address: [address] [place] [address] Performed By: #### L [id number] #### [facility] CLIA [id number] [address] STATES OF [facility] PAP WALL SCRAPER COMMENT This specimen has be en analyzed by the ThinPrep Imaging System, an automated imaging and review system, which assists the laboratory in evaluating cells on ThinPrep Pap tests. Following automated imaging, selected soto from every slide are reviewed by a power switchboard operator. Normal [facility] Comment on above: Order Comment: Speci men Type: FLUID SPECIMEN Ordering Facility: [facility] Address: [address] [place] [address] Performed By: #### L [id number] #### [facility] CLIA [id number] [address] OF [facility] BD DXA - AXIAL SKELETONon BD DXA - AXIAL SKELETON * * *Final Report* * * DATE OF EXAM: Feb 16 2023 3:08PM WRB 0804 - BD DXA - AXIAL SKELETON - RIGHT / PROCEDURE REASON: osteoporosis screening * * * * Physician Interpretation * * * * PROCEDURE: BD DXA - AXIAL SKELETON INDICATION: osteoporosis screening TECHNIQUE: Low dose AP spine and hip images COMPARISON: 11/06/2018 LUMBAR SPINE: The bone mineral density from L1 through L4 is 0.882 grams per square centimeter which yields a T-score of -1.5. Z score 0. LEFT HIP: The bone mineral density of the total region of the hip is 0.869 grams per square centimeter which yields a T-score of -0.6. Z score 0.4. LEFT FEMORAL NECK: The bone mineral density of the femoral neck is 0.718 grams per square centimeter which yields a T-score of -1.2_0.2. . CHANGE IS STATISTICALLY SIGNIFICANT IN THE SPINE OR HIP IF GREATER THAN OR EQUAL TO 0.04g/cm2 IMPRESSION: Osteopenia of the lumbar spine, bone density decreased 0.2%. Osteopenia of the left hip, bone density decreased 0.5%. [facility]. CLASSIFICATION OF BONE MASS CLASSIFICATION T-SCORE Normal Greater than -1 Low Bone Mass Between -1 and -2.5 (Osteopenia) Osteoporosis Less than or equal to -2.5 Earthmoving Labourer: GOLDIE Transcribe Date/Time: Feb 18 2023 3:11P Dictated by : SALVADOR BAILON MD This examination was interpreted and the report reviewed and electronically signed by: SALVADOR BAILON MD on Feb 18 2023 3:34PM EST [id number] Normal [facility] DXA-AXIAL SKELETONon 023 [facility] CNCOon 02-08-2023 CNCO HNO ID: [id number] Author: Coordinator, Mammography Service: ? Author Type: Physician Type: Letter Filed: 02/09/2023 11:31 PM Note Text: February 08, 2023 PID: [id number] Yas Smith [address] [place] [address] Dear Ms. Smith, We are pleased to inform you that the results of your recent breast imaging exam on 02/07/2023 are normal. Your mammogram demonstrates that you have dense breast tissue, which could hide abnormalities. Dense breast tissue, in and of itself, is a relatively common condition. Therefore, this information is not provided to cause undue concern; rather, it is to raise your awareness and promote discussion with your health care provider regarding the presence of dense breast tissue in addition to other risk factors. Early detection of cancer is very important. We also understand recommendations regarding breast cancer screening are controversial. Please discuss with your primary care provider which strategy is best for you and whether a mammogram is right for you. Your imaging studies and report will be kept on file at [facility] as part of your permanent medical record and are available for your continuing care. Thank you for allowing us to help in meeting your health care needs. Sincerely, Dr. Mao Interpreting Radiologist [facility] (Normal over 40) Normal [facility] HIRAM SCREENING W TOMOon 02-07 HIRAM SCREENING W EFREN * * *Final Report* * * DATE OF EXAM: Feb 07 2023 8:30AM WRW 0582 - HIRAM SCREENING W EFREN / PROCEDURE REASON: breast cancer * * * * Physician Interpretation * * * * RESULT: #[id number] - HIRAM SCREENING W EFREN BILATERAL DIGITAL SCREENING MAMMOGRAM TOMOSYNTHESIS WITH CAD: 02/07/2023 HISTORY: Screening mammogram. RESULT: TECHNIQUE: The study was acquired using full field digital technology and interpreted from soft copy. Digital Breast Tomosynthesis (DBT) images were obtained and used to assist in the interpretation of this examination. Current study was also evaluated with a Computer Aided Detection (CAD). Comparison is made to exams dated: 07/28/2020 mammogram, 11/06/2018 mammogram - [facility], and 08/22/2017 mammogram - [facility]. The tissue of both breasts is heterogeneously dense. This may lower the sensitivity of mammography. No significant masses, calcifications, or other findings are seen in either breast. There has been no significant interval change. IMPRESSION: NEGATIVE There is no mammographic evidence of malignancy. A 1 year screening mammogram is recommended. Slick garcia/misa:02/08/2023 08:25:48 copy to: ROWAN CEDENO, ph: [phone] Drafting Layout Worker(s): Gracie Arizmendi RT(R)(M), [facility] letter sent: Normal over 40 Mammogram BI-RADS: 1 Negative Multiple national specialty organizations have released breast cancer screening guidelines for women at average risk for developing breast cancer - guidelines that are based on both evidence and opinion, yet differ on when to start and how often to screen for breast cancer. With representation from Breast Imaging, Internal Medicine, Women's Health, Family Medicine, and Medical/Surgical Oncology, the [facility] has carefully reviewed the data and reached the following consensus: 1) All women should engage in shared decision-making with their providers to decide when to start and how often to screen; 2) All women should have the opportunity to start screening mammography at age 40; 3) For women ages 45-55, we recommend annual screening mammograms; 4) For women ages 55 and over, we support both the transition from an annual to a biennial interval if this aligns more with patient's values and preferences, or continuation with annual screening; 5) All women should discuss with their providers when to stop screening mammograms. Earthmoving Labourer: Misa Transcribe Date/Time: Feb 07 2023 8:34A Dictated by: SLICK MAO MD This examination was interpreted and the report reviewed and electronically signed by: SLICK MAO MD on Feb 08 2023 8:25AM EST [id number] Normal [facility] LABORATORYOrdered By: Radha May on 07-12-2022 Basophil, Absolute 0.0 103/mcL Invalid Interpretation Code 0.0 - 0.2 10^3/mcL AO Workflow SS Basophils/100 WBC (Bld) 0.8 % Invalid Interpretation Code 0.0 - 2.5 % AO Workflow SS Eosinophil, Absolute 0.0 103/mcL Invalid Interpretation Code 0.0 - 0.4 10^3/mcL AO Workflow SS Eosinophils/100 WBC (Bld) 0.7 % Invalid Interpretation Code 0.0 - 7.0 % AO Workflow SS Erythrocyte distribution width (RBC) [Ratio] 14.2 % Invalid Interpretation Code 11.5 - 14.5 % AO Workflow SS Hematocrit (Bld) [Volume fraction] 38.7 % Invalid Interpretation Code 37.0 - 47.0 % AO Workflow SS Hemoglobin (Bld) [Mass/Vol] 13.3 G/dL Invalid Interpretation Code 12.0 - 16.0 G/dL AO Workflow SS Lymphocyte, Absolute 1.9 103/mcL Invalid Interpretation Code 0.8 - 3.9 10^3/mcL AO Workflow SS Lymphocytes/100 WBC (Bld) 33.9 % Invalid Interpretation Code 10.0 - 50.0 % AO Workflow SS MCH (RBC) [Entitic mass] 29.0 pg Invalid Interpretation Code 27.0 - 31.2 pg AO Workflow SS MCHC 34.4 G/dL Invalid Interpretation Code 33.0 - 37.0 G/dL AO Workflow SS MCV (RBC) [Entitic vol] 84.3 fL Invalid Interpretation Code 80.0 - 94.0 fL AO Workflow SS Monocyte, Absolute 0.4 103/mcL Invalid Interpretation Code 0.2 - 1.0 10^3/mcL AO Workflow SS Monocytes/100 WBC (Bld) 7.3 % Invalid Interpretation Code 1.7 - 13.0 % AO Workflow SS Neutrophil, Absolute 3.2 103/mcL Invalid Interpretation Code 2.9 - 6.2 10^3/mcL AO Workflow SS Neutrophils/100 WBC (Bld) 57.3 % Invalid Interpretation Code 37.0 - 80.0 % AO Workflow SS Platelet mean volume (Bld) [Entitic vol] 8.7 fL Invalid Interpretation Code 7.4 - 10.4 fL AO Workflow SS Platelets (Bld) [#/Vol] 248 103/mcL Invalid Interpretation Code 130 - 400 10^3/mcL AO Workflow SS RBC (Bld) [#/Vol] 4.59 106/mcL Invalid Interpretation Code 4.20 - 5.40 10^6/mcL AO Workflow SS WBC (Bld) [#/Vol] 5.6 103/mcL Invalid Interpretation Code 4.6 - 10.8 10^3/mcL AO Workflow SS .CBC Path Reviewon 3 CBC Path Review Leukopenia with absolute neutropenia noted. Some toxic changes also noted. Rule out infection. Rule out drug effect. Rule out bone marrow abnormality. Normal [facility] ([place]) Comment on above: Result Comment: Elec tronically signed by: MISHEL GALINDO 07.06.2022 19:04 EST Performed By: #### C BCPR #### [address] [address] #### MORPH, CMP, LIPID, CBC, DIFF, GFR #### [place] [address] [address] .GFRon 07-05-2022 GFR Non- 82 ml/min/1.73sqm Normal [facility] ([place]) Comment on above: Result Comment: GFR Population mean for , Non- Americans Ages 20-29 = 116 mL/min/1.73 sq.m. Ages 30-39 = 107 mL/min/1.73 sq.m. Ages 40-49 = 99 mL/min/1.73 sq.m. Ages 50-59 = 93 mL/min/1.73 sq.m. Ages 60-69 = 85 mL/min/1.73 sq.m. Ages 70+ = 75 mL/min/1.73 sq.m. Chronic Kidney Disease: Less than 60 mL/min/1.73 square meters End Stage Renal Disease: Less than 15 mL/min/1.73 square meters Performed By: #### C BCPR #### [address] [address] #### MORPH, CMP, LIPID, CBC, DIFF, GFR #### [address] [address] GFR 100 ml/min/1.73sqm Normal [facility] ([place]) Comment on above: Result Comment: GFR Population mean for , Non- Americans Ages 20-29 = 116 mL/min/1.73 sq.m. Ages 30-39 = 107 mL/min/1.73 sq.m. Ages 40-49 = 99 mL/min/1.73 sq.m. Ages 50-59 = 93 mL/min/1.73 sq.m. Ages 60-69 = 85 mL/min/1.73 sq.m. Ages 70+ = 75 mL/min/1.73 sq.m. Chronic Kidney Disease: Less than 60 mL/min/1.73 square meters End Stage Renal Disease: Less than 15 mL/min/1.73 square meters Performed By: #### C BCPR #### [place] [address] #### MORPH, CMP, LIPID, CBC, DIFF, GFR #### [place] [address] .Manual Diffon 07-05-2022 Basophil %, Manual 0.0 % Normal 0.0-2.5 [facility] ([place]) Comment on above: Performed By: #### C BCPR #### [place] [address] #### MORPH, CMP, LIPID, CBC, DIFF, GFR #### [address] [address] Basophil, Abs Manual 0.0 10 3/mcL Normal 0.0-0.2 [facility] ([place]) Comment on above: Performed By: #### C BCPR #### [place] [address] #### MORPH, CMP, LIPID, CBC, DIFF, GFR #### [place] [address] Eosinophil %, Manual 0.0 % Normal 0.0-7.0 [facility] ([place]) Comment on above: Performed By: #### C BCPR #### [place] [address] #### MORPH, CMP, LIPID, CBC, DIFF, GFR #### [address] [address] Eosinophil, Abs Manual 0.0 10 3/mcL Normal 0.0-0.4 [facility] ([place]) Comment on above: Performed By: #### C BCPR #### [place] [address] #### MORPH, CMP, LIPID, CBC, DIFF, GFR #### [address] [address] Lymphocyte %, Manual 42.0 % Normal 10.0-50.0 [facility] ([place]) Comment on above: Performed By: #### C BCPR #### [place] [address] #### MORPH, CMP, LIPID, CBC, DIFF, GFR #### [address] [address] Lymphocyte, Abs Manual 1.2 10 3/mcL Normal 0.8-3.9 [facility] ([place]) Comment on above: Performed By: #### C BCPR #### [place] [address] #### MORPH, CMP, LIPID, CBC, DIFF, GFR #### [address] [address] Monocyte %, Manual 12.0 % Normal 1.7-13.0 [facility] ([place]) Comment on above: Performed By: #### C BCPR #### [place] [address] #### MORPH, CMP, LIPID, CBC, DIFF, GFR #### [address] [address] Monocyte, Abs Manual 0.3 10 3/mcL Normal 0.2-1.0 [facility] ([place]) Comment on above: Performed By: #### C BCPR #### [place] [address] #### MORPH, CMP, LIPID, CBC, DIFF, GFR #### [address] [address] Neutrophil %, Manual 46.0 % Normal 37.0-80.0 [facility] ([place]) Comment on above: Performed By: #### C BCPR #### [place] [address] #### MORPH, CMP, LIPID, CBC, DIFF, GFR #### [address] [address] Neutrophil, Abs Manual 1.3 10 3/mcL Low 2.9-6.2 [facility] ([place]) Comment on above: Performed By: #### C BCPR #### [place] [address] #### MORPH, CMP, LIPID, CBC, DIFF, GFR #### [place] [address] Nucleated RBC 0.0 /100 WBC Normal [facility] ([place]) Comment on above: Performed By: #### C BCPR #### [place] [address] #### MORPH, CMP, LIPID, CBC, DIFF, GFR #### [address] [address] .Morphon 07-05-2022 Platelet Estimate Normal Normal [facility] ([place]) Comment on above: Performed By: #### C BCPR #### [place] [address] #### MORPH, CMP, LIPID, CBC, DIFF, GFR #### [place] [address] RBC morphology finding Nom (Bld) Normal Normal [facility] ([place]) Comment on above: Performed By: #### C BCPR #### [place] [address] #### MORPH, CMP, LIPID, CBC, DIFF, GFR #### [place] [id number] CBCon 07-05-2022 Erythrocyte distribution width (RBC) [Ratio] 14.6 % High 11.5-14.5 [facility] ([place]) Comment on above: Performed By: #### C BCPR #### [place] [address] #### MORPH, CMP, LIPID, CBC, DIFF, GFR #### [address] [address] Hematocrit (Bld) [Volume fraction] 42.3 % Normal 37.0-47.0 [facility] ([place] Comment on above: Performed By: #### C BCPR #### [place] [address] #### MORPH, CMP, LIPID, CBC, DIFF, GFR #### [address] [address] Hgb 14.5 G/dL Normal 12.0-16.0 [facility] ([place] Comment on above: Performed By: #### C BCPR #### [place] [address] #### MORPH, CMP, LIPID, CBC, DIFF, GFR #### [address] [address] MCH (RBC) [Entitic mass] 29.3 pg Normal 27.0-31.2 [facility] ([place] Comment on above: Performed By: #### C BCPR #### [place] [address] #### MORPH, CMP, LIPID, CBC, DIFF, GFR #### [address] [address] MCHC 34.4 G/dL Normal 33.0-37.0 [facility] ([place] Comment on above: Performed By: #### C BCPR #### [place] [address] #### MORPH, CMP, LIPID, CBC, DIFF, GFR #### [address] [address] MCV (RBC) [Entitic vol] 85.0 fL Normal 80.0-94.0 [facility] ([place] Comment on above: Performed By: #### C BCPR #### [place] [address] #### MORPH, CMP, LIPID, CBC, DIFF, GFR #### [address] [address] Platelet 173 10 3/mcL Normal 130-400 [facility] ([place] Comment on above: Performed By: #### C BCPR #### [place] [address] #### MORPH, CMP, LIPID, CBC, DIFF, GFR #### [address] [address] Platelet mean volume (Bld) [Entitic vol] 8.4 fL Normal 7.4-10.4 [facility] ([place] Comment on above: Performed By: #### C BCPR #### [place] [address] #### MORPH, CMP, LIPID, CBC, DIFF, GFR #### [address] [address] RBC 4.97 10 6/mcL Normal 4.20-5.40 [facility] ([place] Comment on above: Performed By: #### C BCPR #### [place] [address] #### MORPH, CMP, LIPID, CBC, DIFF, GFR #### [address] [address] WBC 2.8 10 3/mcL Low 4.6-10.8 [facility] ([place] Comment on above: Performed By: #### C BCPR #### [place] [address] #### MORPH, CMP, LIPID, CBC, DIFF, GFR #### [address] [address] CMPon 07-05-2022 Albumin Level 4.1 G/dL Normal 3.4-4.8 [facility] ([place] Comment on above: Performed By: #### C BCPR #### [place] [address] #### MORPH, CMP, LIPID, CBC, DIFF, GFR #### [address] [address] Albumin/Globulin [Mass ratio] 1.3 {ratio} Normal 1.1-2.5 [facility] ([place] Comment on above: Performed By: #### C BCPR #### [place] [address] #### MORPH, CMP, LIPID, CBC, DIFF, GFR #### [address] [address] ALP [Catalytic activity/Vol] 106 U/L Normal 40-135 [facility] ([place] Comment on above: Performed By: #### C BCPR #### [place] [address] #### MORPH, CMP, LIPID, CBC, DIFF, GFR #### [address] [address] ALT [Catalytic activity/Vol] 32 U/L Normal 14-59 [facility] ([place] Comment on above: Performed By: #### C BCPR #### [place] [address] #### MORPH, CMP, LIPID, CBC, DIFF, GFR #### [address] [address] AST [Catalytic activity/Vol] 26 U/L Normal 10-40 [facility] ([place] Comment on above: Performed By: #### C BCPR #### [place] [address] #### MORPH, CMP, LIPID, CBC, DIFF, GFR #### [address] [address] Bili Total 0.5 mg/dL Normal 0.2-1.0 [facility] ([place] Comment on above: Result Comment: Use of this assay is not recommended for patients undergoing treatment with eltrombopag due to the potential for falsely elevated results. Performed By: #### C BCPR #### [place] [address] #### MORPH, CMP, LIPID, CBC, DIFF, GFR #### [address] [address] BUN/Creatinine Ratio 15 ratio Normal 7-27 [facility] ([place]) Comment on above: Performed By: #### C BCPR #### [place] [address] #### MORPH, CMP, LIPID, CBC, DIFF, GFR #### [address] [address] Calcium [Mass/Vol] 9.4 mg/dL Normal 8.4-10.2 [facility] ([place]) Comment on above: Performed By: #### C BCPR #### [place] [address] #### MORPH, CMP, LIPID, CBC, DIFF, GFR #### [address] [address] Chloride [Moles/Vol] 104 mmol/L Normal 98-107 [facility] ([place]) Comment on above: Performed By: #### C BCPR #### [place] [address] #### MORPH, CMP, LIPID, CBC, DIFF, GFR #### [address] [address] CO2 [Moles/Vol] 32 mmol/L High 23-31 [facility] ([place] Comment on above: Performed By: #### C BCPR #### [place] [address] #### MORPH, CMP, LIPID, CBC, DIFF, GFR #### [address] [address] Creatinine [Mass/Vol] 0.72 mg/dL Normal 0.55-1.02 [facility] ([place]) Comment on above: Performed By: #### C BCPR #### [place] [address] #### MORPH, CMP, LIPID, CBC, DIFF, GFR #### [address] [address] Electrolyte Balance 7.0 mEq/L Normal 4.0-15.0 [facility] ([place]) Comment on above: Performed By: #### C BCPR #### [place] [address] #### MORPH, CMP, LIPID, CBC, DIFF, GFR #### [address] [address] Globulin 3.2 G/dL Normal [facility] ([place] Comment on above: Performed By: #### C BCPR #### [place] [address] #### MORPH, CMP, LIPID, CBC, DIFF, GFR #### [address] [address] Glucose [Mass/Vol] 101 mg/dL Normal 80-115 [facility] ([place] Comment on above: Performed By: #### C BCPR #### [place] [address] #### MORPH, CMP, LIPID, CBC, DIFF, GFR #### [address] [address] Potassium [Moles/Vol] 4.3 mmol/L Normal 3.5-5.1 [facility] ([place] Comment on above: Performed By: #### C BCPR #### [place] [address] #### MORPH, CMP, LIPID, CBC, DIFF, GFR #### [address] [address] Sodium [Moles/Vol] 143 mmol/L Normal 136-145 [facility] ([place] Comment on above: Performed By: #### C BCPR #### [place] [address] #### MORPH, CMP, LIPID, CBC, DIFF, GFR #### [address] [address] Total Protein 7.3 G/dL Normal 6.4-8.2 [facility] ([place] Comment on above: Performed By: #### C BCPR #### [place] [address] #### MORPH, CMP, LIPID, CBC, DIFF, GFR #### [address] [address] Urea nitrogen [Mass/Vol] 11 mg/dL Normal 7-18 [facility] ([place] Comment on above: Performed By: #### C BCPR #### [place] [address] #### MORPH, CMP, LIPID, CBC, DIFF, GFR #### [address] [address] LIPIDon 07-05-2022 Cholesterol [Mass/Vol] 236 mg/dL High 0-200 [facility] ([place] Comment on above: Result Comment: Chol esterol Reference Interval: Less than 200 Desirable 200-239 Borderline high risk 240 and above High risk Performed By: #### C BCPR #### [place] [address] #### MORPH, CMP, LIPID, CBC, DIFF, GFR #### [address] [address] Cholesterol in HDL [Mass/Vol] 58 mg/dL Normal 40-60 [facility] ([place] Comment on above: Performed By: #### C BCPR #### [place] [address] #### MORPH, CMP, LIPID, CBC, DIFF, GFR #### [address] [address] Cholesterol in LDL [Mass/Vol] 161 mg/dL High 0-130 [facility] ([place] Comment on above: Performed By: #### C BCPR #### [place] [address] #### MORPH, CMP, LIPID, CBC, DIFF, GFR #### [address] [address] Triglyceride [Mass/Vol] 86 mg/dL Normal 0-150 [facility] ([place]) Comment on above: Result Comment: Trig lyceride Reference Interval: Less than 150 Normal 150-199 Borderline high risk 200-499 High risk 500 or higher Very high risk Performed By: #### C BCPR #### [facility] [address] [place] [address] #### MORPH, CMP, LIPID, CBC, DIFF, GFR #### [place] [id number] [place], [place] [address] Encounters Encounter Date Encounter Type Care Provider Facility Start: 12-03-2024 ambulatory Can Burnett Facility :[facility] Start: 11-28-2024 End: 11-28-[address] Can Burnett DO Work Phone: [facility] Work Phone: Start: 11-28-2024 End: 11-28-[address] Radha Blanco DO -Radiology [facility] Work Phone: Start: 11-28-2024 End: 11-28-2024 ambulatory Jennifer Chawla Facility:[facility] Start: 09-24-2024 End: 09-24-2024 Patient encounter procedure Jennifer Chawla NP-Ulisses -[facility] Work Phone: Start: 09-24-2024 End: 09-24-2024 ambulatory Jennifer Chawla Facility:[facility] Start: 09-15-2024 ambulatory RADHA BLANCO DO [facility] ity:[facility] Start: 09-12-2024 End: 09-12-2024 ambulatory RADHA BLANCO DO Facility:[facility] Start: 09-12-2024 Encounter for genera l adult medical examination without abnormal findings RADHA BLANCO DO [facility] Start: 03-01-2023 End: 03-01-2023 ambulatory ROWAN CEDENO Facility:[facility] Start: 02-16-2023 End: 02-16-2023 [facility] Start: 02-16-2023 End: 02-16-2023 Subsequent hospital visit by physician Bone Density [facility] Work Phone: Radiology Start: 02-08-2023 Documentation procedure Mammography Coordinator [facility] Start: 02-08-2023 Letter encounter Mammography Coordinator [facility] Department Start: 02-07-2023 End: 08-21-2023 ambulatory CAN BURNETT Facility:[facility] Start: 02-07-2023 End: 02-07-2023 Subsequent hospital visit by physician Screen Mammo [facility] Start: 07-12-2022 End: 07-12-2022 Patient encounter procedure CAN BURNETT DO [facility] Start: 07-05-2022 End: 07-06-2022 ambulatory CAN VIGILSAY Facility:[facility] Procedures Date Procedure Procedure Detail Performing Clinician Start: 11-28-2024 X-ray of esophagus w ith double contrast Dr. Can Burnett DO Work Phone: Start: 02-16-2023 Dxa bone density irene dy 1/> sites axial skel [facility] Provider Start: 02-07-2023 Mammography Mammograph y Coordinator Start: 09-24-2013 Lipid 1996 panel - S gisselle or Plasma Screen Wstr Plan of Treatment Date Care Activity Detail Author Start: 03-01-2028 HPV Testing HPV Testing [facility] Start: 03-01-2028 Pap Testing Pap Testing [facility] Start: 02-08-2024 Mammography [facility] Start: 02-18-2023 Influenza vaccination [facility] Start: 09-06-2022 HPV TESTING HPV TESTING [facility] Start: 09-06-2022 PAP TESTING PAP TESTING [facility] Start: 06-20-2022 [facility] [facility] Start: 2021 RSV Vaccine (1 - 1-d ose 60+ series) RSV Vaccine (1 - 1-dose 60+ series) [facility] Start: 09-24-2018 Lipid 1996 panel - S gisselle or Plasma Lipid Screening [facility] Start: 09-24-2018 LIPID SCREEN LIPID SCREEN [facility] Start: 09-24-2016 DIABETES [facility]CREEN [facility] Start: 09-24-2016 Diabetes Screening Diabetes Screenin g [facility] Start: 2011 SHINGRIX VACCINE (1 of 2) SHINGRIX V ACCINE (1 of 2) [facility] Start: 2006 COLOGUARD (FIT-DNA) COLOGUARD (FIT-D NA) [facility] Start: 2006 Colonoscopy COLONOSCOPY [facility] Start: 2006 COLORECTAL CANCER SCREENING COLORECTAL CANCER SCREENING [facility] Start: [address] [facility] Start: 2006 FECAL OCCULT BLOOD FECAL OCCULT BLOO D [facility] Start: 2006 SIGMOIDOSCOPY SIGMOIDOSCOPY [facility] Start: 1980 Urine microalbumin profile [facility] Start: 1979 HEPATITIS C SCREENING HEPATITIS C SC REENING [facility] Start: 1979 HIV SCREENING HIV SCREENING [facility] Start: 1960 COVID-19 VACCINE (#1) COVID-19 VACCI NE (#1) [facility] Immunizations Immunization Date Immunization Notes Care Provider Fa andres 04-10-2019 influenza virus vaccine, unspecified formulation CAN BURNETT DO [facility] 04-13-2018 zoster vaccine recombinant CAN RASHAWN DO [facility] 11-25-2017 zoster vaccine recombinant CAN RASHAWN DO [facility] Payers Date Payer Category Payer Self-pay [id number] 2024 Unknown [id number] 2022 Medicaid [employer] [id number] 2022-Present [phone] [address] [place] [address] Medicaid [id number] 2022 Medicaid [id number] 2022 Unknown [id number] 1960 Unknown [id number] 1960 Unknown [id number] 1960 Unknown [id number] Unknown [id number] Unknown [id number] Unknown [id number] Social History Date Type Detail Facility Start: 05-19-2020 End: 11-30-2024 Tobacco smoking status Never smoked tobacco (finding) [facility] Start: 1960 Sex Assigned At Female A [facility] Start: 02-24-2012 Tobacco use and exposure Smoke less tobacco non-user [facility] Start: 07-21-2020 Alcohol intake Current drinke r of alcohol (finding) [facility] Start: 05-25-2020 End: 07-21-2020 History of Social function [facility] Work Phone: Start: 05-25-2020 End: 07-21-2020 Social connection and isolation panel [facility] Work Phone: Do you belong to any clubs or organizations such as taoist groups, unions, fraternal or athletic groups, or school groups? No [facility] Work Phone: Are you now , , , , never or living with a partner? Living with partner [facility] Work Phone: Do you feel stress - tense, restless, nervous, or anxious, or unable to sleep at night because your mind is troubled all the time - these days [OSQ] Only a little [facility] Work Phone: National Score (1-10 0), lower number is lower risk Not on file [facility] Start: 1960 Sex Assigned At Not on file [facility] Clinical Notes 12-28-2005 to 11-28-2024 Note Date & Type Note Facility 11-28-2024 Radiology Diagnostic study note [facility] Imaging Services [address] [place] [address] Esophagus Dual Contrast MR#: [id number] Acct: [id number] Name: YAS SMITH Rep #: [id number] : 1960 F 64 From: Shine Cedillo MD PCP: GIANNI Dumont Status: REG CL I Study:Esophagus Dual Contrast Date of Exam: 11/28/24 Exam# [id number] Ordering Dr: Blaine Blanco DO PROCEDURE: ESOPHAGUS DUAL CONTRAST 11/28/2024 REASON FOR EXAM: DYAPHAGIA/GERD W/O ESOPHAGITIS TECHNIQUE: The patient ingested barium. Multiple images were obtained. 34 seconds of fluoroscopy. 2.95 mGy. COMPARISON: None FINDINGS: There is a small sliding hiatal hernia without gastroesophageal reflux. Web-like stenosis is seen at the gastroesophageal junction. The patient ingested a 12 mm tablet the barium. The tablet is trapped at the gastroesophageal junction. RAD/Esophagus Dual Contrast IMPRESSION: Small sliding hiatal hernia without gastroesophageal reflux. Web-like stenosis at the gastroesophageal junction. There is trapping of the 12 mm tablet the barium at that site. Reading Location: [facility]- CC: GIANNI Chawla; Dr. Radha Blanco DO ~ Earthmoving Labourer: Signed [facility] 09-24-2024 Evaluation note Diagnosis Onset Date Resolution Dysphagia acute September 24 2:55pm Gastroesophageal reflux disease noneactive September 24, 2024 2:55pm [facility] Work Phone: 1(639) 439-696609-12-2023 NoteHNO ID: [id number] Author: Rowan Cedeno APRN.SCRAP STRIPPER HAND Service: ? Author Type: Nurse Practitioner Type: Progress Notes Filed: 03/01/2023 2:46 PM Note Text: Yas is a 62 year old who presents for an annual gynecologic exam without complaints. Postmenopausal: Yes since 2011 HRT use: No. Last Pap: 09/16/2017 normal HPV: 09/08/2017 negative History of abnormal pap: No Last mammogram: 2022 normal History of abnormal mammogram: Yes benign Sexually active: not really OB History T0 L1 SAB0 IAB0 Ectopic0 Multiple0 Live Births0 Logistics Coordinator History LMP: 07/17/2012, Postmenopausal Age at Menarche: Age at First : Age at Menopause: Logistics Coordinator History Comments: Sexual Activity: Yes; Male; partner vasectomy Contraception: No contraception data on record PAST MEDICAL HISTORY Diagnosis Date Facet arthritis of cervical region Hyperlipemia PAST SURGICAL HISTORY Procedure Laterality Date BREAST BIOPSY 02/2012 left breast cyst asp/benign FAMILY HISTORY Problem Relation Age of Onset None Mother Breast Cancer Maternal Grandmother also 2 maternal aunts SOCIAL HISTORY Social History Tobacco Use Smoking status: Never Smokeless tobacco: Never Vaping Use Vaping Use: Never used Substance Use Topics Alcohol use: Yes Comment: occasionally once monthly Drug use: No REVIEW OF SYSTEMS Abdomen: No abdominal pain, nausea, vomiting, diarrhea, or constipation. No bloating, early satiety, indigestion, or increased flatulence. Bladder: No dysuria, gross hematuria, urinary frequency, urinary urgency, or incontinence Breast: No breast lumps, nipple d/c, overlying skin changes, redness or skin retraction Allergies and current medication updated:Yes EXAM: BP 118/66 Ht 5' 7 (1.70m) Wt 190 lb 6.4 oz (86.4kg) LMP 07/17/2012 BMI 29.81 kg/(m2). GENERAL: pleasant, female in no apparent distress HEENT: Normocephalic, atraumatic, mucus membranes moist, and no lesions NECK: Supple, full range of motion, no adenopathy, and thyroid normal DERMATOLOGY: Normal, without lesions, non-icteric, and non-hirsute BREAST: soft, non-tender, symmetric, no dominant mass, normal nipple-areolar complex, no lymphadenopathy, and no nipple discharge CHEST: Normal inspiratory effort ABDOMEN: soft, non-tender, and no masses PELVIC: external genitalia normal, normal Bartholin's glands, urethra, [place]'s glands, no vulvar lesions, no cervical lesions, physiologic discharge present, normal appearing perineal body and perianal region BIMANUAL: uterus normal size, shape and consistency, no adnexal masses, and non-tender RECTOVAGINAL: deferred. NEURO: alert and oriented x3,exam grossly non-focal EXTREMITIES: normal ASSESSMENT/PLAN: 1) Health maintenance: Pap done with HPV. Mammogram up to date Nutrition, exercise and routine health maintenance exams reviewed. Calcium/Vitamin D supplementation information provided. Colon cancer screening: up to date with screening BMD: up to date 2) Follow up one year or sooner as needed Rowan Cedeno APRN.[facility]08-30-2023 NoteHNO ID: [id number] Author: John Talavera RT(Amira) Service: ? Author Type: Technologist Type: Progress Notes Filed: 02/16/2023 3:09 PM Note Text: Radiology Service Progress Note PATIENT NAME: Yas Smith DATE OF SERVICE: February 16, 2023 TIME: 2:49 PM PATIENT IDENTITY VERIFICATION COMPLETED USING TWO (2) IDENTIFIERS: Name and Date of confirmed by patient verbally. FALL SCREENING: Has the patient had 2 falls in the last year or 1 fall with injury or currently using an Ambulatory Assistive Device (Walker, Cane, Wheelchair, Crutches, etc.)? No PATIENT GENDER DATA: Female. status: : No status: NO. PATIENT RELEVANT IMPLANT DATA REVIEWED: Not Applicable RADIOLOGY DEPARTMENT: Bone Density PERIPHERAL IV DATA: Not applicable SIGNED BY: RT Aury(R) February 16, 2023 2:49 [facility] of Present illness Narrative* John Talavera RT(Amira) - 02/16/2023 2:30 PM EDT Radiology Service Progress Note PATIENT NAME: Yas Smith DATE OF SERVICE: February 16, 2023 TIME: 2:49 PM PATIENT IDENTITY VERIFICATION COMPLETED USING TWO (2) IDENTIFIERS: Name and Date of confirmedby patient verbally. FALL SCREENING: Has the patient had 2 falls in the last year or 1 fall with injury or currently using an Ambulatory Assistive Device (Walker, Cane, Wheelchair, Crutches, etc.)? No PATIENT GENDER DATA: Female. status: : No status: NO. PATIENT RELEVANT IMPLANT DATA REVIEWED: Not Applicable RADIOLOGY DEPARTMENT: Bone Density PERIPHERAL IV DATA: Not applicable SIGNED BY: RT Aury(Amira) February 16, 2023 2:49 PM documented in this encounter[facility]23 Miscellaneous Notes* Letter - Coordinator, Mammography - 02/08/2023 8:25 AM EDT February 08, 2023 PID: [id number] Yas Smith [address] [place] [address] Dear Ms. Smith, We are pleased to inform you that the results of your recent breast imaging exam on 02/07/2023 are normal. Your mammogram demonstrates that you have dense breast tissue, which could hide abnormalities. Dense breast tissue, in and of itself, is a relatively common condition. Therefore, this information is not provided to cause undue concern; rather, it is to raise your awareness and promote discussion with your health care provider regarding the presence of dense breast tissue in addition to other riskfactors. Early detection of cancer is very important. We also understand recommendations regarding breast cancer screening are controversial. Please discuss with your primary care provider which strategy is best for you and whether a mammogram is right for you. Your imaging studies and report will be kept on file at [facility] as part of your permanent medical record and are available for your continuing care. Thank you for allowing us to help in meeting your health care needs. Sincerely, Dr. Mao Interpreting Radiologist [facility] (Normal over 40) documented in this encounterCoshocton [facility] Center08-21-2023 NoteHNO ID: [id number] Author: Karyna Zhang RT(Amira) Service: ? Author Type: Sales Ledger Clerk Type: Progress Notes Filed: 02/07/2023 8:11 AM Note Text: Radiology Service Progress Note PATIENT NAME: Yas Smith DATE OF SERVICE: February 07, 2023 TIME: 8:10 AM PATIENT IDENTITY VERIFICATION COMPLETED USING TWO (2) IDENTIFIERS: Name and Date of confirmed by patient verbally. FALL SCREENING: Has the patient had 2 falls in the last year or 1 fall with injury or currently using an Ambulatory Assistive Device (Walker, Cane, Wheelchair, Crutches, etc.)? No PATIENT GENDER DATA: Female. status: : No status: NO. PATIENT RELEVANT IMPLANT DATA REVIEWED: Not Applicable RADIOLOGY DEPARTMENT: Mammography PERIPHERAL IV DATA: Not applicable SIGNED BY: RT Marielle(R) February 07, 2023 8:10 [facility]08-21-2023 History of Present illness Narrative* Karyna Zhang RT(R) - 02/07/2023 8:10 AM EDT Radiology Service Progress Note PATIENT NAME: Yas Smith DATE OF SERVICE: February 07, 2023 TIME: 8:10 AM PATIENT IDENTITY VERIFICATION COMPLETED USING TWO (2) IDENTIFIERS: Name and Date of confirmedby patient verbally. FALL SCREENING: Has the patient had 2 falls in the last year or 1 fall with injury or currently using an Ambulatory Assistive Device (Walker, Cane, Wheelchair, Crutches, etc.)? No PATIENT GENDER DATA: Female. status: : No status: NO. PATIENT RELEVANT IMPLANT DATA REVIEWED: Not Applicable RADIOLOGY DEPARTMENT: Mammography PERIPHERAL IV DATA: Not applicable SIGNED BY: RT Marielle(R) February 07, 2023 8:10 AM documented in this encounterCoshoct[facility]01-16-2023 Evaluation + Plan note Future Scheduled Tests Radiology* MA Mammo Screening Bilateral w/ Efren 07/05/22 * BD Bone Density DEXA Axial Skeleton 07/05/22 [facility] 07-11-2006 History of Past illness Narrative* Problem Noted Date Diagnosed Date Resolved Date Lump or mass in breast 12/28/200503/22 documented as of this encounter (statuses as of 02/10/2023) [facility]07-[facility]-2006 History of Past illness Narrative* Problem Noted Date Diagnosed Date Resolved Date Lump or mass in breast 12/28/200503/22 documented as of this encounter (statuses as of 04/24/2023) [facility] [facility] Narrative No data available for this section [facility] Hospital Discharge instructions No data available for this section [facility] Progress note No data available for this section [facility] Reason for referral (narrative)No reason for referral information availableWMercy Health [facility] Work Phone: Summary Purpose Family History No Family History Records FoundNo Family History Records FoundNo Family History Records FoundNo Family History Records Found Advance Directives No Advanced Directives Records FoundNo Advanced Directives Records FoundNo Advanced Directives Records FoundNo Advanced Directives Records Found Chief Complaint and Reason for Visit Chief Complaint Admit Date Gastroesophageal reflux disease (GERD) A pril 2024 2:55pm DYSPHAGIA 12 MM TABLET November 28, 2024 8 :02am Reason for Visit Admit Date Dysphagia September 24, 2024 2:55 pm Gastroesophageal reflux disease September 2:55pm Additional Source Comments INFORMATION SOURCE (unrecogn ized section and content) DATE CREATED AUTHOR 07/07/2022 [facility] ([place]) DATE CREATED AUTHOR AUTHOR'S ORGANIZ ATION 03/27/2023 [facility] DATE CREATED AUTHOR AUTHOR'S ORGANIZ ATION 10/23/2024 [facility] DATE CREATED AUTHOR AUTHOR'S ORGANIZ ATION 12/01/2024 [facility] Care Team (unrecognized sect ion and content) Care Team Personnel Name: CAN BURNETT DO Position: P4 Physician - Primary Care Member Role: Primary Care Physician Address: Address: [address] [place] [id number] [place] [address] Care Team Related Persons Name: KHAI CUENCA Source Comments (unrecognize d section and content) In the event this informatio n is protected by the Federal Confidentiality of Alcohol and Drug Abuse Patient Records regulations: The Federal rules restrict any use of the information to criminally investigate or prosecute any alcohol or drug abuse patient.[facility] the event this information is protected by the Federal Confidentiality of Alcohol and Drug Abuse Patient Records regulations: The Federal rules restrict any use of the information to criminally investigate or prosecute any alcohol or drug abuse patient.[facility] the event this information is protected by the Federal Confidentiality of Alcohol and Drug Abuse Patient Records regulations: The Federal rules restrict any use of the information to criminally investigate or prosecute any alcohol or drug abuse patient.[facility] Care Teams (unrecognized sec tion and content) Spout Liner Helper Relationship Specialty Start Date End Date Can Burnett DO PCP - General Family Medicine 08/17/17 Spout Liner Helper Relationship Specialty Start Date End Date Can Burnett DO PCP - General Family Medicine 08/17/17 Team Status: Active Member Role Status Dates Dr. Can Burnett DO Primary Care Provider Active Team Status: Inactive Member Role Status Dates Dr. Can Burnett DO Primary Care Provider Active Start: September 24, 2024 End: September 24, 2024 Dr. Can Burnett DO Referring Provider Active Start: September 24, 2024 End: September 24, 2024 GIANNI Dumont Attending Provider Active S tart: September 24, 2024 End: September 24, 2024 Team Status: Inactive Member Role Status Dates Dr. Radha Blanco DO Attending Provider Active Start: November 28, 2024 End: November 28, 2024 Dr. Radha Blanco DO Referring Provider Active Start: November 28, 2024 End: November 28, 2024 GIANNI Dumont Primary Care Provider Active Start: November 28, 2024 End: November 28, 2024 Goals (unrecognized section and content) Goals may be documented in a n alternate section FOR RECORDS PERTAINING TO PATIENTS WHO ARE OR HAVE BEEN ENROLLED IN A CHEMICAL DEPENDENCY/SUBSTANCEABUSE PROGRAM, SOME INFORMATION MAY BE OMITTED. This clinical summary was aggregated from multiple sources. Caution should be exercised in using it in the provision of clinical care. This summary normalizes information from multiple sources, and as a consequence, information in this document may materially change the coding, format and clinical context of patient data. In addition, data may be omitted in some cases. CLINICAL DECISIONS SHOULD BE BASED ON THE PRIMARY CLINICAL RECORDS. [employer] provides no warranty or guarantee of the accuracy or completeness of information in this document.
[2024-12-03] MEDS: Lactated Ringers 1,000 ML 15 ML IV (05:59)
--- NOTE | 2024-12-03 06:22 | PCM.PRE.AN2 ---
ASA Classification* ASA Classification ASA Classification: 2 Assessment & Plan Anesthesia* Anesthesia Assessment Anesthesia Assessment: Discussed sedation and/or anesthesia options, risks, benefits, and alternatives with patient/parents/legal guardian/POA. Questions invited. The patient/parents/legal guardian/POA seems to understand and agrees to proceed with anesthesia plan. Reviewed the physical assessment, medical history, allergy history and patient home medications list prior to surgery/procedure/anesthetic and documented any changes. Performed airway and anesthesia risk assessments. Anesthesia Type Anesthesia Type: MAC History Source History Obtained from:: Patient and Chart Anesthesia Focused Assessment* Temperature: 96.9 F Pulse Rate: 74 Blood Pressure: 132/85 Respiratory Rate: 16 Pulse Ox: 96 Oxygen Delivery Method: Room Air Airway Assessment Mouth opens: >3 cm Mallampati Score: IV Teeth Condition: Partial (Patient has lower partial. It will come out.) Neck Range of motion (ROM): Full ROM Labs Anesthesia Preop lab: CBC WBC 6.0 K/mm3 (4.4-11.0) 03/10/21 18:35 03/10/21 RBC 5.11 M/mm3 (4.2-5.4) 03/10/21 18:35 03/10/21 Hgb 14.9 g/dL (12.0-15.0) 03/10/21 18:35 03/10/21 Hct 44.6 % (37-47) 03/10/21 18:35 03/10/21 Plt Count 174 K/mm3 (150-450) 03/10/21 18:35 03/10/21 CHEMISTRY Potassium 3.5 mmol/L (3.5-5.1) 03/10/21 18:35 03/10/21 Sodium 137 mmol/L (136-145) 03/10/21 18:35 03/10/21 BUN 11 mg/dL (7-18) 03/10/21 18:35 03/10/21 Creatinine 0.72 mg/dL (0.55-1.02) 03/10/21 18:35 03/10/21 Glucose 127 mg/dL (74-106) H 03/10/21 18:35 03/10/21 COAG Pre-Assessment Diagnosis/Proposed Procedure Planned Operative Procedure(s): EGD Anesthesia History 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 When Was Last Pacemaker Check QUESTION #4 FULL TEXT: You/Your Family Experience fever (hyperthermia) with Anesthesia Last Oral Intake Last Oral intake: Last Oral Intake NPO since 22:00 12/03/24 05:50 Meds taken in AM with sips of No 12/03/24 05:50 water? Meds patient instructed to take am of surgery PONV PONV - chemical laboratory scientist: PONV - chemical laboratory scientist Female Yes 11/30/24 08:40 HX of Motion Sickness Yes 11/30/24 08:40 HX of N/V After Surgery Yes 11/30/24 08:40 Non-Smoker Yes 11/30/24 08:40 Duration of Surgery greater No 11/30/24 08:40 than 60 minutes Number of Risk Factors 4 11/30/24 08:40 PONV Score Severe Risk 11/30/24 08:40 Height & Weight Height & Weight: Anesthesia: Height & Weight Height 5 ft 7 in 12/03/24 05:50 Weight: 87 kg 12/03/24 05:50 Body Mass Index (BMI) 30.0 12/03/24 05:50 Respiratory Assessment Respiratory Assessment - chemical laboratory scientist: Respiratory Tract Infection Hx - chemical laboratory scientist Hx Respiratory Tract Infection No 11/30/24 08:40 STOP Sleep Apnea STOP Sleep Apnea - chemical laboratory scientist: STOP Sleep Apnea - chemical laboratory scientist Hx Hypertension No 11/30/24 08:40 Hx Sleep Apnea No 11/30/24 08:40 CPAP BIPAP Do you snore loudly (louder No 11/30/24 08:40 than talking or can be heard Do you often feel tired/ No 11/30/24 08:40 fatigued/ sleepy during daytime? Has anyone observed you stop No 11/30/24 08:40 breathing during sleep? STOP Results Negative 11/30/24 08:40 QUESTION #5 FULL TEXT : Do you snore loudly (louder than talking or can be heard through closed doors)? 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 Specify any problems Hx of Preganancy in last 3 No 11/30/24 08:40 Months Nurse Filling Out Transfusion VCHRISTIN 11/30/24 08:40 & Questions: Date: 11/30/24 11/30/24 08:40 Time: 08:41 11/30/24 08:40 Patient unable to answer at this time (ie. confused, unrespo /Reproduction History /Reproductive History - chemical laboratory scientist: /Reproductive Hx- chemical laboratory scientist Hx Now No 11/30/24 08:40 Gestational Age (in weeks): EDC: Hx Hx Para Hx Section SAB No 11/30/24 08:40 Active Medications Active Medications: Current Medications Generic Name Dose Route Start Last Admin Trade Name Sakina PRN Reason Stop Dose Admin Lactated Ringer's 1,000 mls @ 15 mls/hr 12/03/24 05:45 12/03/24 05:59 IV 15 mls/hr .Q48H YESSENIA Administration PFSH Medical History Vertigo Wears partial dentures Gastric reflux Non-smoker Home Medications ?Medication ?Instructions ?Recorded ?Last Taken ?Type famotidine 40 mg tablet 40 mg PO QHS #30 tabs 09/24/24 Unknown Rx pantoprazole 40 mg tablet,delayed 40 mg PO BID #60 tabs 09/24/24 Unknown Rx release ascorbic acid (vitamin C) 500 mg 500 mg PO DAILY 11/30/24 11/29/24 History tablet (C-500) calcium 600 mg (as 1 tab PO DAILY 11/30/24 11/29/24 History carbonate)-vitamin D3 5 mcg (200 unit) tablet (Calcium 600 + D(3)) cholecalciferol (vitamin D3) 25 25 mcg PO DAILY 11/30/24 11/29/24 History mcg (1,000 unit) capsule (Vitamin D3) cyanocobalamin (vitamin B-12) 50 50 mcg PO DAILY 11/30/24 11/29/24 History mcg tablet (Vitamin B-12) magnesium 250 mg tablet 250 mg PO DAILY 11/30/24 11/29/24 History multivitamin (Daily Multi-Vitamin 1 tab PO DAILY 11/30/24 Unknown History tablet) omega 3-eyt-ujl-fish oil 1,200 mg 1 cap PO DAILY 11/30/24 11/29/24 History (144 mg-216 mg) capsule (Fish Oil) Allergy/AdvReac Type Severity Reaction Status Date / Time No Known Allergies Allergy Verified 12/03/24 05:49 Social History Smoking Status: Never smoker Review of Systems (Anesthesia) ROS Narrative System reviewed and no additional complaints, except as documented.
--- NOTE | 2024-12-03 06:30 | EGD_PTH ---
PATIENT: ROSALINDA CARDOZO LOC: EN U#:[id number] AGE/SX: 64/F ROOM: RE12/03/[address]: Dr. Francesco Morris DO : 1960 BED: DIS: 12/03/2024 SPEC #: [id number] RECD: 12/03/24 10:42 STATUS: GEORGI RESteph #: [id number] HEATH: 12/03/24 06:[address]: Francesco Morris DEPT: SURGICAL PATHOLOGY RECD BY: Ihsan Chin ENTERED: 12/03/24 11:33 SP TYPE: EGD BIOPSY OT DR: Dr. Memo Burnett DO Tissues: A - Esophagus, NOS Procedures: Surgery Specimen Level IV HEADER OPERATION: EGD with biopsy and dilation PRE-OP DIAGNOSIS: Gastroesophageal reflux disease, dysphagia TISSUE SUBMITTED: A- Distal esophagus biopsy MICROSCOPIC DIAGNOSIS A. Distal esophagus, biopsy: Squamous mucosa with reactive changes. Columnar mucosa, negative for goblet cell metaplasia. MICROSCOPIC DESCRIPTION Slides are reviewed. GROSS DESCRIPTION A. Received in fixative is one container labeled with the patient's name and designated Distal esophagus biopsy. The specimen consists of two irregular fragments of light chow soft tissue that in aggregate measure 0.3 and 0.6 cm. The specimen is totally submitted in one cassette. CPT:09847 IESHA/mr 12/03/2024
--- NOTE | 2024-12-03 06:39 | PCM.HP.STD ---
HPI - General General Date of Admission: 12/03/24 Date of Service: 12/03/24 Chief Complaint: Dysphagia HPI Narrative ROSALINDA CARDOZO, is a 64 F who presents for the evaluation of dysphagia. 64 F who presents to the office today for establishment with [facility] for complaints of difficulty swallowing. 09.12.24 Labs: HCV nonreactive, chol 273, trig 81, HDL 71, LDL 186, CBC/CMP WNL. She reports that while eating, she will randomly get the feeling that her air is cut off but she can breathe just fine. She does not consume large bites of food and the food type is not consistently the same with each episode. When the blockages occur, she will note increased salivation and nasal drainage, she will then burp and it feels as if the food bolus will then travel down. She reports frequent sour taste in her mouth, she does snore very loudly, and notes increased belching. She difficulty chewing and moving food bolus to back of mouth. She does have frequent throat clearing when not eating. She denies nausea, vomiting, abdominal bloating, pain, constipation, diarrhea, hematochezia, and melena. She reports daily BMs without straining and with complete evacuation. She states that she is already scheduled for a barium tablet swallow test at [facility] on 10.11.24. She has been taking OTC Pepcid every night but has not noticed any decrease in occurrences of difficulty swallowing. [facility] Medical History Vertigo Wears partial dentures Gastric reflux Non-smoker Home Medications ?Medication ?Instructions ?Recorded ?Last Taken ?Type famotidine 40 mg tablet 40 mg PO QHS #30 tabs 09/24/24 Unknown Rx pantoprazole 40 mg tablet,delayed 40 mg PO BID #60 tabs 09/24/24 Unknown Rx release ascorbic acid (vitamin C) 500 mg 500 mg PO DAILY 11/30/24 11/29/24 History tablet (C-500) calcium 600 mg (as 1 tab PO DAILY 11/30/24 11/29/24 History carbonate)-vitamin D3 5 mcg (200 unit) tablet (Calcium 600 + D(3)) cholecalciferol (vitamin D3) 25 25 mcg PO DAILY 11/30/24 11/29/24 History mcg (1,000 unit) capsule (Vitamin D3) cyanocobalamin (vitamin B-12) 50 50 mcg PO DAILY 11/30/24 11/29/24 History mcg tablet (Vitamin B-12) magnesium 250 mg tablet 250 mg PO DAILY 11/30/24 11/29/24 History multivitamin (Daily Multi-Vitamin 1 tab PO DAILY 11/30/24 Unknown History tablet) omega 6-xjw-ncb-fish oil 1,200 mg 1 cap PO DAILY 11/30/24 11/29/24 History (144 mg-216 mg) capsule (Fish Oil) Allergy/AdvReac Type Severity Reaction Status Date / Time No Known Allergies Allergy Verified 12/03/24 05:49 Social History Smoking Status: Never smoker ROS Constitutional Constitutional: Denies fatigue, fever(s), poor appetite, weight gain or weight loss Gastrointestinal Gastrointestinal: Denies belching, bloating, change in bowel habits, change in stool character, chewing difficulty, coffee ground emesis, constipation, cramping, diarrhea, dyspepsia, dysphagia, early satiety, excessive flatus, fecal incontinence, heartburn, hematemesis, hematochezia, hemorrhoids, loose stools, melena, nausea, odynophagia, rectal bleeding, tenesmus, vomiting or weight changes Vital Signs Vital Signs Vital Signs: 12/03/24 05:50 12/03/24 05:50 12/03/24 06:27 Temperature 96.9 F L 96.9 F L Temperature Source Temporal Pulse Rate 74 74 Respiratory Rate 16 16 Respiratory Pattern Normal Blood Pressure 132/85 H 132/85 H Blood Pressure Mean 100 Blood Pressure Source Monitor Blood Pressure Position Semi-Fowlers Blood Pressure Location Left Arm Pulse Ox 96 96 Oxygen Delivery Method Room Air Room Air Weight Weight: 191 lb 12.835 oz Body Mass Index (BMI) 30.0 Physical Exam Const alert, oriented x3, no apparent distress and healthy appearing General Appearance: cooperative GI normal to inspection, nondistended, normoactive bowel sounds, soft to palpation, non-tender and non-distended Percussion: normal to percussion Rectal Exam: deferred Assessment & Plan Assessment/Plan (1) Dysphagia: QUALIFIERS: Dysphagia type: unspecified Qualified Code(s): R13.10 - Dysphagia, unspecified PLAN: Assessment and Plan Assessment and Plan (1) Gastroesophageal reflux disease: Qualifiers: Esophagitis presence: esophagitis presence not specified Qualified Code(s): K21.9 - Gastro-esophageal reflux disease without esophagitis (2) Dysphagia: Status: Acute Qualifiers: Dysphagia type: unspecified Qualified Code(s): R13.10 - Dysphagia, unspecified Medications: New pantoprazole Please take 30 minutes before breakfast and dinner. 40 mg PO BID 60 tabs 3RF famotidine 40 mg PO QHS 30 tabs 3RF Discontinued ondansetron Discontinued Reason: Pt no longer taking 4 mg PO Q8H PRN PRN 10 tabs Nausea ondansetron Discontinued Reason: Pt no longer taking 4 mg PO Q8H PRN PRN 10 tabs 0RF Nausea Plan ROSALINDA CARDOZO, is a 64 F who presents to the office today for establishment with [facility] for complaints of difficulty swallowing. Differential diagnoses include: esophageal dysmotility, GERD, GEJ dysfunction, gastritis. Discussed care plan with her. encouraged her to see PCP for sleep study consult pantoprazole 40mg PO, take 30minutes before breakfast and dinner famotidine 40mg PO QHS communicate barium tablet swallow results to this office consider esophageal manometry schedule EGD for assessment, ok to cancel if dysphagia controlled by medications office FU post EGD
--- NOTE | 2024-12-03 07:06 | OP.CCLET_ITS ---
12/03/2024 Memo Burnett [address] [place] [address] Re : Upper GI endoscopy procedure for Yas Smith Dear Dr. Burnett This procedure was performed on Tuesday, December 03, 2024. My impressions and recommendations are as follows: Impressions : - Abnormal esophageal motility. Dilated. - Z-line irregular, 40 cm from the incisors. Biopsied. - Hiatal hernia. - No gross lesions in the entire examined duodenum. Recommendations : - Discharge patient to home. - Resume previous diet. - Continue present medications. My findings are described in the full procedure note, which is enclosed. If I can be of further assistance, please feel free to contact me at . Sincerely, Francesco Morris, 12/03/2024 7:05:35 AM This report has been signed electronically.
--- NOTE | 2024-12-03 07:06 | OP.EGD_ITS ---
Patient Name: Yas Smith Procedure Date: 12/03/2024 6:20 AM Date of : 1960 Age: 64 Procedure: Upper GI endoscopy Indications: Dysphagia Providers: Francesco Morris DO Referring MD: Memo Burnett Medicines: Monitored Anesthesia Care Patient Profile: This is a 64 year old female. Refer to note in patient chart for documentation of history and physical. Patient has symptoms of chronic chest pain and dysphagia with both liquids and solids. Complications: No immediate complications. Procedure: Pre-Anesthesia Assessment: - Prior to the procedure, a History and Physical was performed, and patient medications and allergies were reviewed. The patient is competent. The risks and benefits of the procedure and the sedation options and risks were discussed with the patient. All questions were answered and informed consent was obtained. Patient identification and proposed procedure were verified by the physician in the pre-procedure area. Mental Status Examination: alert and oriented. Airway Examination: normal oropharyngeal airway and neck mobility. Respiratory Examination: clear to auscultation. CV Examination: normal. Prophylactic Antibiotics: The patient does not require prophylactic antibiotics. Prior Anticoagulants: The patient has taken no anticoagulant or antiplatelet agents except for NSAID medication. ASA Grade Assessment: II - A patient with mild systemic disease. After reviewing the risks and benefits, the patient was deemed in satisfactory condition to undergo the procedure. The anesthesia plan was to use monitored anesthesia care (MAC). Immediately prior to administration of medications, the patient was re-assessed for adequacy to receive sedatives. The heart rate, respiratory rate, oxygen saturations, blood pressure, adequacy of pulmonary ventilation, and response to care were monitored throughout the procedure. The physical status of the patient was re-assessed after the procedure. After obtaining informed consent, the endoscope was passed under direct vision. Throughout the procedure, the patient's blood pressure, pulse, and oxygen saturations were monitored continuously. The Endoscope was introduced through the mouth, and advanced to the second part of duodenum. The upper GI endoscopy was accomplished without difficulty. The patient tolerated the procedure well. Scope In: 6:53:47 AM Scope Out: 6:58:25 AM Total Procedure Duration Time 0 hours 4 minutes 38 seconds Findings: Abnormal motility was noted in the esophagus. The cricopharyngeus was abnormal. There are extra peristaltic waves in the esophageal body. The distal esophagus/lower esophageal sphincter is spastic, but gives up passage to the endoscope. Tertiary peristaltic waves are noted. A guidewire was placed and the scope was withdrawn. Dilation was performed with a Savary dilator with no resistance at 60 Fr. The dilation site was examined and showed moderate improvement in luminal narrowing. Estimated blood loss was minimal. The Z-line was irregular and was found 40 cm from the incisors. Biopsies were taken with a cold forceps for histology. Verification of patient identification for the specimen was done. Estimated blood loss was minimal. A hiatal hernia was present. No gross lesions were noted in the entire examined duodenum. Impression: - Abnormal esophageal motility. Dilated. - Z-line irregular, 40 cm from the incisors. Biopsied. - Hiatal hernia. - No gross lesions in the entire examined duodenum. Recommendation: - Discharge patient to home. - Resume previous diet. - Continue present medications. Procedure Code(s): --- Professional --- 21743, Esophagogastroduodenoscopy, flexible, transoral; with insertion of guide wire followed by passage of dilator(s) through esophagus over guide wire 43471, Esophagogastroduodenoscopy, flexible, transoral; with biopsy, single or multiple CPT copyright 2021 [employer]. All rights reserved. The codes documented in this report are preliminary and upon dowel setting machine operator review may be revised to meet current compliance requirements. Francesco Morris DO 12/03/2024 7:05:35 AM This report has been signed electronically. Number of Addenda: 0 Note Initiated On: 12/03/2024 6:20 AM
--- NOTE | 2024-12-03 07:08 | PCM.POST.ANE ---
Anesthesia: Postop Eval I Current Vital Signs Temperature: 98.4 F Pulse Rate: 74 Blood Pressure: 134/109 Respiratory Rate: 14 Pulse Ox: 94 Oxygen Delivery Method: Room Air Assessment Airway patent: Yes Spontaneous unlabored respirations: Yes Mental status: Awake nausea: No Vomiting: No Anesthesia Complication: No Fluid Hydration Crystalloid volume administer (ml): 300 Total IV fluid infused: 300 Progress Note Anesthesia document: Postop Eval 1 completed: Yes
--- NOTE | 2024-12-03 12:22 | PCM.POSTANE2 ---
Anesthesia Postop Eval I Sum Postop Eval Completion status Anesthesia document: Postop Eval 1 completed: Yes Anesthesia Postop Eval I Summary Anesthesia Postop Eval I Summary: Anesthesia Postop Eval I: Assessment Summary Airway patent Yes 12/03/24 07:09 [email or web address] Spontaneous unlabored Yes 12/03/24 07:09 [email or web address] respirations Mental status Awake 12/03/24 07:09 [email or web address] nausea No 12/03/24 07:09 [email or web address] Vomiting No 12/03/24 07:09 [email or web address] Anesthesia Postop Eval I: Fluid Summary Crystalloid volume administer 300 12/03/24 07:09 [email or web address] (ml) Colloids volume administered ( ml) Blood Product volume administered (ml) Total IV fluid infused 300 12/03/24 07:09 [email or web address] Anesthesia Postop Eval I: Summary Notes Anesthesia Complication No 12/03/24 07:09 [email or web address] Anesthesia Complication Comment: Post-operative progress note Anesthesia: Postop Eval II Evaluation Mental status: Awake and Calm Pain Level: 0 nausea: No Vomiting: No Complications Anesthesia Complication: No
== END 2024-12-03 07:42 | disposition home or self-care (01) ==
LOC: EN 05:16 → AC 05:19
PROVIDERS: PCP Preventive Medicine Occupational Medicine; Referring Provider Preventive Medicine Occupational Medicine; Visit Provider Internal Medicine Gastroenterology
PROC: 0DJ08ZZ Inspection of Upper Intestinal Tract, Via Natural or Artificial Opening Endoscopic (ICD-10-PCS; CPT 43235; principal; 2024-12-03 06:25)
DX: K44.9 Diaphragmatic hernia without obstruction or gangrene (principal); K21.9 Gastro-esophageal reflux disease without esophagitis; R13.10 Dysphagia, unspecified; Z79.899 Other long term (current) drug therapy; K30 Functional dyspepsia
CPT/HCPCS: 43248; 43239; 88305; C1769; J2405